=== PATIENT | female | born 1945 | race American Indian/Alaskan Native ===

== ENCOUNTER 2016-11-11 15:27 | Emergency (ER) | payer OTHER, BC ==
[2016-11-11 15:34] VITALS: PULSE 115; TEMP 99.1
[2016-11-11 15:35] VITALS: BP 119/60
[2016-11-11] MEDS ORDERED: IPRATROPIUM/ALBUTEROL 3 ML DEYVIAL ONE (15:43)
[2016-11-11] MEDS ORDERED: IPRATROPIUM/ALBUTEROL 3 ML DEYVIAL IH ONE (15:46)
--- NOTE | 2016-11-11 16:04 | UCPHY ---
[id number] Time Seen by Provider: 11/11/16 15:42 HPI/ROS: 71-year-old female with history of pulmonary hypertension on home oxygen however has not been using home oxygen for several months. She presents today complaining of shortness of breath cough fevers chills, body aches since last Friday. She has a hx of using home oxygen however has not used it for at least the last 6 months. Patient has a history of pulmonary hypertension. Review of systems As per HPI General positive fever positive chills positive weakness HEENT no eye pain no eye discharge. No eye redness, no sore throat Respiratory positive cough positive shortness of breath Cardiac no chest pain, positive leg edema GI no abdominal pain, no diarrhea, no constipation, no nausea, no vomiting no flank pain, no hematuria, no dysuria Musculoskeletal no myalgias, no joint pain Heme no easy bruising, no easy bleeding Endo no polyuria, no polydipsia Skin no rashes, no pruritus Neuro no syncope, no dizziness, no headaches Psych is no suicidal ideation, no homicidal ideation Source: Patient, Family Exam Limitations: Clinical condition - Personal History Current Tetanus/Diphtheria Vaccine: Unsure Tetanus Vaccine Date: unsure - Medical/Surgical History Hx Asthma: Yes Hx Chronic Respiratory Disease: Yes Hx Diabetes: No Hx Cardiac Disease: Yes Hx Renal Disease: No Hx Cirrhosis: No Hx Alcoholism: No Hx HIV/AIDS: No Hx Splenectomy or Spleen Trauma: No Other PMH: pulmonary htn, on coumadin for pe 2012,ra,htn - Family History Significant Family History: No pertinent family hx - Social History Smoking Status: Never smoked Alcohol Use: None Drug Use: None - Physical Exam Exam: 71-year-old female , tachypneic, tachycardic, in moderate respiratory distress Atraumatic normocephalic Extraocular muscles intact, anicteric Neck-no JVD supple Lungs diffuse wheezing bilaterally Heart holosystolic murmur, rapid rate regular rhythm Abdomen obese NABS soft Extremities 1+ pitting edema bilaterally Neuro No focal motor deficits Speech coherent Constitutional: Initial Vital Signs Temperature (C) 37.3 C 11/11/16 15:32 Heart Rate 115 H 11/11/16 15:32 Respiratory Rate 22 H 11/11/16 15:32 Blood Pressure 119/60 11/11/16 15:32 O2 Sat (%) 75 L 11/11/16 15:32 O2 Delivery Mode Non-Rebreather Mask O2 (L/minute) 15 Allergies/Adverse Reactions: ciprofloxacin [From Cipro] Allergy (Intermediate, Verified 11/11/16 15:31) CHILLS, FEVER cephalexin monohydrate [From Keflex] Allergy (Verified 11/11/16 15:31) CHILLS ciprofloxacin HCl [From Cipro] Allergy (Verified 11/11/16 15:31) ITCH Home Medications: Medication Instructions Recorded Albuterol [Proventil Inhaler (RX)] 2 puffs IH PRN PRN 01/06/13 Sildenafil Citrate [Revatio] 40 mg PO BID 01/06/13 Tramadol HCl 100 mg PO BID 01/06/13 Zolpidem Tartrate [Ambien 10 mg] 5 - 10 mg PO HS 01/06/13 CeleBREX 01/08/14 Coumadin 1MG (RX) 01/08/14 Lasix 01/08/14 Medical Decision Making - Diagnostics Imaging: Chest x-ray bilateral lower lobe pneumonia increased vasculature cardiomegaly ED Course/Re-evaluation: Patient seen and evaluated for cough fevers chills shortness of breath and low pulse ox On arrival her pulse ox was 75% on room air She was wheezing and immediately started on a DuoNeb She required a non-rebreather at 15 L in addition a 4 L nasal cannula to keep her oxygen above 90% IV was established labs, blood cultures, and influenza swab were sent EKG done-normal sinus rhythm inverted Ts in leads V1 and V2, no ST elevation Influenza negative BNP 3240, elevated Troponin 0.073, elevated Patient given additional albuterol neb Furosemide 40 mg IV push for fluid overload Also given baby aspirin 324 mg, Solu-Medrol 125 mg Patient is allergic to both ciprofloxacin and cephalosporins Azithromycin 500 mg IV piggyback given for initial coverage of community- acquired pneumonia Impression Dyspnea likely multifactorial Bilateral lower lobe pneumonia, congestive heart failure, pulmonary hypertension Plan Transfer to hospital with ICU of capabilities for probable BiPAP and further workup of this dyspnea Discussed with Dr. Reed at [facility] to be admitted to ICU, awaiting bed assignment. - Data Points Laboratory Results: Laboratory Results 11/11/16 16:15 11/11/16 15:57 11/11/16 11/11/16 11/11/16 16:32 16:15 15:57 WBC 8.52 10^3/uL (3.80-9.50) RBC 4.61 10^6/uL (4.18-5.33) Hgb 13.9 g/dL (12.6-16.3) Hct 43.0 % (38.0-47.0) MCV 93.3 fL (81.5-99.8) MCH 30.2 pg (27.9-34.1) MCHC 32.3 L g/dL (32.4-36.7) RDW 17.8 H % (11.5-15.2) Plt Count 184 10^3/uL (150-400) MPV 11.3 fL (8.7-11.7) Neut % (Auto) 63.3 % (39.3-74.2) Lymph % (Auto) 22.8 % (15.0-45.0) [place] % (Auto) 11.6 % (4.5-13.0) Eos % (Auto) 0.0 L % (0.6-7.6) Baso % (Auto) 0.5 % (0.3-1.7) Nucleat RBC Rel Count 0.7 H % (0.0-0.2) Absolute Neuts (auto) 5.40 10^3/uL (1.70-6.50) Absolute Lymphs (auto) 1.94 10^3/uL (1.00-3.00) Absolute Monos (auto) 0.99 H 10^3/uL (0.30-0.80) Absolute Eos (auto) 0.00 L 10^3/uL (0.03-0.40) Absolute Basos (auto) 0.04 10^3/uL (0.02-0.10) Absolute Nucleated RBC 0.06 H 10^3/uL (0-0.01) Immature Gran % 1.8 H % (0.0-1.1) Immature Gran # 0.15 H 10^3/uL (0.00-0.10) PT 25.5 H SEC (12.0-15.0) INR 2.38 H (0.83-1.16) APTT 46.6 H SEC (23.0-38.0) VBG Lactic Acid 1.4 mmol/L (0.7-2.1) Sodium 140 mEq/L (134-144) Potassium 4.4 mEq/L (3.5-5.2) Chloride 101 mEq/L (97-110) Carbon Dioxide 26 mEq/l (22-31) Anion Gap 13 mEq/L (8-16) BUN 19 mg/dL (7-23) Creatinine 1.1 H mg/dL (0.6-1.0) Estimated GFR 49 Glucose 107 H mg/dL (70-100) Calcium 8.4 L mg/dL (8.5-10.4) Total Bilirubin 1.9 H mg/dL (0.1-1.4) AST 61 H IU/L (14-46) ALT 43 IU/L (9-52) Alkaline Phosphatase 137 H IU/L (38-126) Troponin I 0.073 H ng/mL (0-0.034) NT-Pro-B Natriuret Pep 3240 H pg/mL (0-125) Total Protein 6.0 L g/dL (6.3-8.2) Albumin 2.9 L g/dL (3.5-5.0) Influenza Typ A,B (DFA) NEGATIVE FOR FLU (NEGATIVE) Medications Given: Discontinued Medications Albuterol (Proventil Neb) 3 ml IH EDNOW ONE Stop: 11/11/16 17:19 Last Admin: 11/11/16 17:51 Dose: 3 ml Albuterol/Ipratropium (Duoneb) 3 ml IH EDNOW ONE Stop: 11/11/16 15:47 Last Admin: 11/11/16 15:47 Dose: 3 ml Aspirin (Aspirin) 324 mg PO EDNOW ONE Stop: 11/11/16 16:53 Last Admin: 11/11/16 17:40 Dose: 324 mg Furosemide (Lasix Injection) 40 mg IVP EDNOW ONE Stop: 11/11/16 16:52 Last Admin: 11/11/16 17:40 Dose: 40 mg Azithromycin 500 mg/ Sodium (Chloride) 255 mls @ 255 mls/hr IV EDNOW ONE PRN Reason: Protocol Stop: 11/11/16 18:40 Last Admin: 11/11/16 18:00 Dose: 255 mls Methylprednisolone Sodium Succinate (Solu-Medrol) 125 mg IVP EDNOW ONE Stop: 11/11/16 17:43 Last Admin: 11/11/16 18:08 Dose: 125 mg Departure - Departure Disposition: Acute Care Hospital Not [facility] Clinical Impression: Dyspnea Condition: Serious Referrals: Shefali Burns [Primary Care Provider] - As per Instructions - PQRS PQRS Measurement: Not applicable
[2016-11-11 16:23] LABS: % IMMATURE GRANULYOCYTES 1.8 % (0.0-1.1); ABSOLUTE IMMATURE GRANULOCYTES 0.15 10^3/uL (0.00-0.10); ABSOLUTE NRBC COUNT 0.06 10^3/uL (0-0.01); ADD DIFF? NO; ADD MORPH? NO; ADD SCAN? NO; ATYPICAL LYMPHOCYTE FLAG 0 (0-99); FRAGMENT RBC FLAG 40 (0-99); HEMOGLOBIN 13.9 g/dL (12.6-16.3); LEFT SHIFT FLG 50 (0-99); LIPEMIA HEMOLYSIS FLAG 80 (0-99); MEAN CELL HEMOGLOBIN 30.2 pg (27.9-34.1); MEAN CELL HEMOGLOBIN CONCENTR. 32.3 g/dL (32.4-36.7); MEAN CELL VOLUME 93.3 fL (81.5-99.8); MEAN PLATELET VOLUME 11.3 fL (8.7-11.7); NRBC-AUTO% 0.7 % (0.0-0.2); PLATELET CLUMPS FLAG 10 (0-99); PLATELET COUNT 184 10^3/uL (150-400); RED BLOOD CELL COUNT 4.61 10^6/uL (4.18-5.33); RED CELL DISTRIBUTION WIDTH 17.8 % (11.5-15.2)
--- NOTE | 2016-11-11 16:33 | CPEKG ---
Heart Rate: 88 RR Interval: 682 P-R Interval: 192 QRSD Interval: 90 QT Interval: 356 QTC Interval: 431 P [place]: -24 QRS [place]: 74 T Wave [place]: -2 EKG Severity - BORDERLINE ECG - EKG Impression: SINUS RHYTHM EKG Impression: BORDERLINE T ABNORMALITIES, ANTERIOR LEADS EKG Impression: UNCHANGED IN COMPARISION TO PRIOR Electronically Signed By: Rian Dickson 13-Nov-2016 08:37:59
[2016-11-11 16:38] LABS: ALANINE AMINOTRANSFERASE 43 IU/L (9-52); ALBUMIN 2.9 g/dL (3.5-5.0); ALKALINE PHOSPHATASE 137 IU/L (38-126); ANION GAP 13 mEq/L (8-16); ASPARTATE AMINOTRANSFERASE 61 IU/L (14-46); BILIRUBIN,TOTAL 1.9 mg/dL (0.1-1.4); CALCIUM 8.4 mg/dL (8.5-10.4); CARBON DIOXIDE 26 mEq/l (22-31); CHLORIDE 101 mEq/L (97-110); CREATININE 1.1 mg/dL (0.6-1.0); GLOMERULAR FILTRATION RATE 49; GLUCOSE 107 mg/dL (70-100); POTASSIUM 4.4 mEq/L (3.5-5.2); SODIUM 140 mEq/L (134-144)
[2016-11-11 16:44] LABS: TROPONIN I 0.073 ng/mL (0-0.034)
[2016-11-11] MEDS ORDERED: FUROSEMIDE 40 MG/4 ML VIAL IVP ONE (16:51)
[2016-11-11] MEDS ORDERED: ASPIRIN 81 MG CHEWABLE TAB PO ONE (16:52)
[2016-11-11 16:57] LABS: INR 2.38 (0.83-1.16); PROTIME(PATIENT) 25.5 SEC (12.0-15.0)
[2016-11-11 16:58] LABS: APTT 46.6 SEC (23.0-38.0)
--- NOTE | 2016-11-11 17:03 | DX ---
Portable AP chest. 11/11/2016 at 1647 History: cough Comparison study: None available Findings: Airspace consolidation is present in the mid and lower lungs bilaterally, pneumonia versus pulmonary edema. Cardiac silhouette is moderately prominent. No pleural effusion. Impression: Bilateral lower lobe pulmonary consolidation, pneumonia versus pulmonary edema.
[2016-11-11] MEDS ORDERED: VANCOMYCIN 1.5 GM in NS 250 ML IV ONE (17:17)
[2016-11-11] MEDS ORDERED: ALBUTEROL 3 ML DEYVIAL IH ONE (17:18)
[2016-11-11] MEDS ORDERED: AZITHROMYCIN IV 500 MG in NS 250 ML IV ONE (17:41)
[2016-11-11] MEDS ORDERED: methylPREDNISolone SOD SUCC 125 MG/2 ML VIAL IVP ONE (17:42)
[2016-11-11 20:14] VITALS: RESP 24; O2SAT 88
== END 2016-11-11 20:14 | disposition short-term general hospital (02) ==
LOC: CED 15:27 → CEDHOLD 17:34 → UNDOADMIN 17:34 → CED 20:14
DX: R06.00 Dyspnea, unspecified (principal); I27.2 Other secondary pulmonary hypertension; Z99.81 Dependence on supplemental oxygen; Z79.01 Long term (current) use of anticoagulants
CPT/HCPCS: 71010-PO; 80053-PO; 83605-PO; 83880-PO; 84484-PO; 85025-PO; 85610-PO; 85730-PO; 87400-PO; 93010-PO; 99215-PO; J0456

== ENCOUNTER 2018-07-30 19:16 | Inpatient (IN) | payer OTHER, BC ==
[2018-07-30] MEDS ORDERED: NS 1,000 ML IV ONE (19:51)
[2018-07-30] MEDS ORDERED: HYDROmorphONE/DILAUDID 2 MG/ML INJ IVP ONE (20:05)
[2018-07-30] MEDS ORDERED: ONDANSETRON 4 MG/2 ML VIAL IVP ONE (20:05)
--- NOTE | 2018-07-30 20:16 | EDPHY ---
H & P Stated Complaint: c/o URQ abd pain since 10 am - now pain all over - denies N/V/ D BM today Time Seen by Provider: 07/30/18 19:49 HPI/ROS: This patient complains of upper abdominal pain and distension onset around 10: 00 a.m. Today with steadily increasing pain described as colicky in nature and severe intensity, similar to prior episodes of bowel obstruction. She describes associated nausea and anorexia. Last food intake was some crackers this morning. She also describes low-grade subjective fevers. She did have 1 normal appearing bowel movement this afternoon. The pain worsens with certain movement and positions-worse with bending for than lying supine. Her drove her in by private vehicle for further evaluation of the symptoms. ROS: Constitutional: Subjective fevers. No high fevers or chills HEENT: No URI symptoms but she does have coryza she attributes to seasonal allergies Pulmonary: No complaints Cardiovascular: No lightheadedness or chest pain GI: Nausea but no vomiting, normal bowel movements, distension with pain radiates to the back. : No hematuria. No flank pain. No dysuria. Integumentary: No complaints Endocrine: No complaints Hematologic: She denies any pallor 10 point review of symptoms is performed and otherwise negative with exception of pertinent positives and negatives listed in HPI and ROS Source: Patient Exam Limitations: No limitations - Personal History Current Tetanus Diphtheria and Acellular Pertussis (TDAP): Yes Tetanus Vaccine Date: unsure - Medical/Surgical History PMH: Past surgical history: Laparotomy for peritonitis at age 15 Cholecystectomy Ectopic Bowel obstruction requiring colon resection [address] OMAR Vanegas Hx Asthma: Yes Hx Chronic Respiratory Disease: Yes Hx Diabetes: No Hx Cardiac Disease: Yes Hx Renal Disease: No Hx Cirrhosis: No Hx Alcoholism: No Hx HIV/AIDS: No Hx Splenectomy or Spleen Trauma: No Other PMH: pulmonary htn- Dr joel Ayon, on coumadin for pe 2012,ra,htn/Colon resection/ opsuinet- sindenafil - Family History Significant Family History: No pertinent family hx - Social History Smoking Status: Never smoked Alcohol Use: Rarely Drug Use: None - Physical Exam Exam: General Appearance: Alert, no distress. Eyes: Pupils equal and round no pallor or injection. ENT, Mouth: Mucous membranes moist. Respiratory: There are no retractions, lungs are clear to auscultation. Cardiovascular: Irregularly irregular with no murmur gallop or rub. She maintains 2+ symmetric lower extremity pulses bilaterally Gastrointestinal: Hypoactive, soft, moderate distension-diffuse tenderness with no guarding or rebound with slightly more tenderness to the upper belly than lower belly. Neurological: GCS 15 Back: No CVA tenderness Skin: Warm and dry, no rashes. Musculoskeletal: Neck is supple nontender. Extremities are symmetrical, full range of motion. Psychiatric: Mood and affect are normal DIFFERENTIAL DIAGNOSIS: After history and physical exam differential diagnosis was considered for bowel obstruction, pancreatitis, perforated viscus, AAA, ischemic bowel Constitutional: Initial Vital Signs Temperature (C) 36.6 C 07/30/18 19:24 Heart Rate 86 07/30/18 19:24 Respiratory Rate 20 07/30/18 19:24 Blood Pressure 147/90 H 07/30/18 19:24 O2 Sat (%) 97 07/30/18 19:24 O2 Delivery Mode Room Air Allergies/Adverse Reactions: ciprofloxacin [From Cipro] Allergy (Intermediate, Verified 11/11/16 15:31) CHILLS, FEVER cephalexin monohydrate [From Keflex] Allergy (Verified 11/11/16 15:31) CHILLS ciprofloxacin HCl [From Cipro] Allergy (Verified 11/11/16 15:31) ITCH Home Medications: Medication Instructions Recorded Sildenafil Citrate [Revatio] 40 mg PO BID 01/06/13 Zolpidem Tartrate [Ambien 10 mg] 5 - 10 mg PO HS 01/06/13 CeleBREX 01/08/14 Coumadin 1MG (RX) 01/08/14 Lasix 01/08/14 Macitentan 07/30/18 Sildenafil Citrate 07/30/18 Medical Decision Making - Diagnostics EKG Interpretation: 12 lead EKG performed at 8:58 pm indication irregular on monitor Reveals sinus rhythm at 91 intervals: P R of 226 other intervals are normal except for QT of 525 overall assessment: sinus rhythm with ventricular trigeminy Imaging Results: Imaging Impressions Abdomen CT 07/30/18 20:06 Impression: 1. Small bowel dilatation, with an apparent transition point in the anterior right pelvis near an area of previous surgery, suspicious for small bowel obstruction. 2. Indeterminate soft tissue density in the subcutaneous tissues in the area of transition, most likely related to incomplete resolution of a previously suspected hematoma. 3. Small infrarenal abdominal aortic aneurysm, without dissection. 4. Small volume of ascites. 5. Extensive sigmoid diverticulosis, without evidence of diverticulitis. 6. Nonspecific mildly prominent iliac lymph nodes, possibly reactive. 7. Additional findings, as above. Findings discussed with Toribio Lorenzo M.D., on July 30, 2018 at 2103. E:amm CT abdomen pelvis with IV contrast: Loops of dilated small bowel consistent with small-bowel obstruction per Dr. Colunga. She also has mild abdominal aortic aneurysm 3.3 cm but no evidence of dissection or other significant abnormalities. Imaging: Discussed imaging studies w/ bilingual call center representative Radiologist ED Course/Re-evaluation: IV, normal saline bolus Patient vomited shortly after arrival then treated with Zofran 4 mg IV Patient initially had a 22 gauge IV in the hand. Asked for a larger IV for contrast CT study Discussion: Given findings most consistent with bowel obstruction, will proceed with CT abdomen on this patient. Counseled regarding this. Discussed the patient's small bowel obstruction with her after I spoke with Dr. Colunga, radiologist regarding her CT. I also personally reviewed these images. The patient feels comfortable after the Zofran, emesis x1, Dilaudid. She is in agreement with plan for admission. I spoke with Dr. Megan Soler, hospitalist on-call for [facility] also accepts the patient for admission. I also spoke with Dr. Lashaun Patel, general surgeon on-call for Dr. Omar Vanegas (pt's surgeon). Surg. will see the patient tomorrow in consult. Lab Studies: CBC is normal, metabolic panel is normal POC INR of 2 - Data Points Laboratory Results: Laboratory Results 07/30/18 19:45 07/30/18 07/30/18 07/30/18 19:59 19:45 19:45 WBC 8.69 10^3/uL 10^3/uL (3.80-9.50) RBC 4.51 10^6/uL 10^6/uL (4.18-5.33) Hgb 13.7 g/dL g/dL (12.6-16.3) Hct 43.0 % % (38.0-47.0) MCV 95.3 fL fL (81.5-99.8) MCH 30.4 pg pg (27.9-34.1) MCHC 31.9 g/dL L g/dL (32.4-36.7) RDW 19.0 % H % (11.5-15.2) Plt Count 231 10^3/uL 10^3/uL (150-400) MPV 10.5 fL fL (8.7-11.7) Neut % (Auto) 83.6 % H % (39.3-74.2) Lymph % (Auto) 9.7 % L % (15.0-45.0) [place] % (Auto) 5.1 % % (4.5-13.0) Eos % (Auto) 0.7 % % (0.6-7.6) Baso % (Auto) 0.2 % L % (0.3-1.7) Nucleat RBC Rel Count 0.2 % % (0.0-0.2) Absolute Neuts (auto) 7.27 10^3/uL H 10^3/uL (1.70-6.50) Absolute Lymphs (auto) 0.84 10^3/uL L 10^3/uL (1.00-3.00) Absolute Monos (auto) 0.44 10^3/uL 10^3/uL (0.30-0.80) Absolute Eos (auto) 0.06 10^3/uL 10^3/uL (0.03-0.40) Absolute Basos (auto) 0.02 10^3/uL 10^3/uL (0.02-0.10) Absolute Nucleated RBC 0.02 10^3/uL H 10^3/uL (0-0.01) Immature Gran % 0.7 % % (0.0-1.1) Immature Gran # 0.06 10^3/uL 10^3/uL (0.00-0.10) Platelet Estimate ADEQUATE (ADEQ) Polychromasia 1+ H Microcytic Cells 1+ H Oval Macrocytes 1+ H Elliptocytes 1+ H POC Sodium 144 mEq/L mEq/L (135-145) POC Potassium 4.4 mEq/L mEq/L (3.3-5.0) POC Chloride 105.0 mEq/L mEq/L (97-110) POC Total CO2 26 mEq/L mEq/L (22-31) POC BUN 14 mg/dL mg/dL (7-23) POC Creatinine 1.1 mg/dL H mg/dL (0.6-1.0) POC Glucose 117 mg/dL H mg/dL (70-100) POC Calcium 9.9 mg/dL mg/dL (8.5-10.4) POC Total Bilirubin 0.8 mg/dL mg/dL (0.1-1.4) POC AST 28 IU/L IU/L (14-46) POC ALT 12 IU/L IU/L (9-52) POC Alk Phosphatase 91 IU/L IU/L (38-126) POC Total Protein 7.3 g/dL g/dL (6.3-8.2) POC Albumin 4.0 g/dL g/dL (3.5-5.0) Lipase 73 IU/L IU/L (23-300) Medications Given: Discontinued Medications Hydromorphone HCl (Dilaudid) 1 mg IVP EDNOW ONE Stop: 07/30/18 20:06 Last Admin: 07/30/18 21:08 Dose: 1 mg Hydromorphone HCl (Dilaudid) 0.5 mg IVP EDNOW ONE Stop: 07/30/18 22:14 Last Admin: 07/30/18 22:14 Dose: 0.5 mg Sodium Chloride (Ns) 1,000 mls @ 0 mls/hr IV EDNOW ONE; Wide Open PRN Reason: Protocol Stop: 07/30/18 19:52 Last Admin: 07/30/18 19:56 Dose: 1,000 mls Ondansetron HCl (Zofran) 4 mg IVP EDNOW ONE Stop: 07/30/18 20:06 Last Admin: 07/30/18 21:09 Dose: 4 mg Point of Care Test Results: Chemistry 07/30/18 19:59 POC Sodium 144 mEq/L mEq/L (135-145) POC Potassium 4.4 mEq/L mEq/L (3.3-5.0) POC Chloride 105.0 mEq/L mEq/L (97-110) POC Total CO2 26 mEq/L mEq/L (22-31) POC BUN 14 mg/dL mg/dL (7-23) POC Creatinine 1.1 mg/dL H mg/dL (0.6-1.0) POC Glucose 117 mg/dL H mg/dL (70-100) POC Calcium 9.9 mg/dL mg/dL (8.5-10.4) POC Total Bilirubin 0.8 mg/dL mg/dL (0.1-1.4) POC AST 28 IU/L IU/L (14-46) POC ALT 12 IU/L IU/L (9-52) POC Alk Phosphatase 91 IU/L IU/L (38-126) POC Total Protein 7.3 g/dL g/dL (6.3-8.2) POC Albumin 4.0 g/dL g/dL (3.5-5.0) Comprehensive Metabolic Panel CMP Collection Date 07/30/18 CMP Collection Time 19:45 Departure - Departure Disposition: [facility] Acute Clinical Impression: Small bowel obstruction Condition: Fair
[2018-07-30] MEDS ORDERED: IOPAMIDOL (ISOVUE-300) 100 ML BTL ONE (20:19)
[2018-07-30 20:50] LABS: PLATELET COUNT 231 10^3/uL (150-400)
[2018-07-30] MEDS ORDERED: ONDANSETRON 4 MG/2 ML VIAL IVP PRN (21:38)
[2018-07-30] MEDS ORDERED: LORazepam 2 MG/ML INJ IVP PRN (21:38)
[2018-07-30] MEDS ORDERED: HYDROmorphONE/DILAUDID 1 MG/ML INJ ONE (22:09)
[2018-07-30] MEDS ORDERED: HYDROmorphONE/DILAUDID 1 MG/ML INJ IVP ONE (22:13)
[2018-07-31] MEDS: LORazepam 2 MG/ML INJ IVP PRN ×2 (00:24→20:41)
[2018-07-31] MEDS: NS 1,000 ML IV SCH ×3 (00:24→16:35)
--- NOTE | 2018-07-31 03:22 | PDGENHP ---
History and Physical - Chief Complaint Abdominal pain and distension - History of Present Illness Source-patient provides history appears reliable. EMR was reviewed and case discussed with ED provider. HPI-this is a very pleasant 72-year-old female with past medical history significant for asthma, pulmonary hypertension status post PE on Coumadin, RA, HTN, trigeminal neuralgia in significant history of SBO related to adhesions who presents emergency department today at [facility] with complaints of 1 day history of increasing abdominal pain and significant distention starting approximately 10:00 a.m.. Patient had reported increasing cramping diffuse abdominal pain that was severe in nature. It worsened with any kind of movement. It did not improve with rest or bowel movement. Patient reports significant nausea and felt like she had to vomit and had decreased appetite all day. When she arrived to the ED patient did subsequently developed on nausea with bilious emesis but no hematemesis. Patient has a history of recurrent SBO does a multiple ex laps and last this surgery sometime as early as 2009 patient underwent a partial bowel resection with Dr. Vanegas. She subsequently in 2012 underwent a ventral hernia repair with mesh. She reports that she had been doing well up until this morning. Patient reports some subjective fevers but no chills or sweats. History Information - Allergies/Home Medication List Allergies/Adverse Reactions: ciprofloxacin [From Cipro] Allergy (Intermediate, Verified 11/11/16 15:31) CHILLS, FEVER cephalexin monohydrate [From Keflex] Allergy (Verified 11/11/16 15:31) CHILLS ciprofloxacin HCl [From Cipro] Allergy (Verified 11/11/16 15:31) ITCH Home Medications: Sildenafil Citrate [Revatio] 40 mg PO BID 01/06/13 [Last Taken 01/05/13] Zolpidem Tartrate [Ambien 10 mg] 5 - 10 mg PO HS 01/06/13 [Last Taken 01/05/13] CeleBREX 01/08/14 [Last Taken Unknown] Coumadin 1MG (RX) 01/08/14 [Last Taken Unknown] Lasix 01/08/14 [Last Taken Unknown] Macitentan 07/30/18 [Last Taken Unknown] Sildenafil Citrate 07/30/18 [Last Taken Unknown] I have personally reviewed and updated: family history, medical history, social history, surgical history - Past Medical History Additional medical history: PE on Coumadin. Pulmonary hypertension. Asthma. RA. HTN. Trigeminal neuralgia. "hole in heart" - Surgical History Additional surgical history: Patient with a history of exploratory laparotomy for what was thought to be volvulus at age 15 with normal findings, ectopic , cholecystectomy open, ex lap for lysis of adhesions 2009 with partial bowel resection. Two thousand thirteen ventral hernia repair. - Family History Additional family history: Patient has 9 siblings altogether. She has 3 living siblings still that live in various states. Father age 59 due to massive CA. Mother age 86 secondary to CHF. Eldest brother related to complications of endocarditis. Another brother with history of cardiac disease. Eldest sister with history of cardiac disease and lung cancer. Another sister with history of fatty liver disease and subsequently developed liver cancer. A brother with history of lymphoma - Social History Smoking Status: Never smoked Alcohol Use: None Drug Use: None Additional social history: Patient is to has been of 47 years. She has 2 children and several grandchildren. Cor status-full. Review of Systems Review of Systems: ROS: 10pt was reviewed & negative except for what was stated in HPI & below Constitutional: Reports: fever (Subjective fevers) Physical Exam Physical Exam: Selected Entries 07/30/18 07/30/18 19:24 23:23 Blood Pressure Automatic Method Heart Rate 86 103 H Respiratory 20 18 Rate O2 Sat (%) 97 94 Temperature (C) 36.6 C 37.1 C Blood Pressure 147/90 H 135/69 H Mean Arterial 109 H 91 Pressure (MAP) O2 (L/minute) 5 Activity During At Rest Vital Signs O2 Delivery Room Air Room Air Mode Blood Pressure Left Source Upper Arm Temperature Oral Oral Source Heart Rate Heart Rate/ Source Monitor Constitutional: no apparent distress, appears nourished, obese, other (NAD. Patient is lying back in bed awake and interactive. She does appear little uncomfortable with movement and cradle is her lower abdomen slightly.) Eyes: PERRL (Decreased reactivity light bilaterally and symmetric.), anicteric sclera, EOMI, No scleral injection Ears, Nose, Mouth, Throat: moist mucous membranes, no oral mucosal ulcers, other (No nasal discharge.), No poor dentition (Dentures in place.) Cardiovascular: regular rate and rhythym, pulses symmetric bilaterally, other ( Holosystolic murmur greatest at the top left sternal border) Peripheral Pulses: 1+: dorsalis-pedis (R), dorsalis-pedis (L) Respiratory: no respiratory distress, no rales or rhonchi, clear to auscultation , No expiratory wheeze, No rhonchi Gastrointestinal: normoactive bowel sounds, no palpable masses, tenderness ( Mild tenderness to palpation diffusely), distension, other (Obese abdomen. Hypoactive bowel sounds.), No guarding Genitourinary: no bladder tenderness, No nair in urethra Skin: warm, normal color, no rashes or abrasions, No rash Musculoskeletal: full muscle strength, other (Stress patient's strength grossly normal. She is able to sit up independently. Strength upper lower extremities appear to be above 5/5.), No generalized weakness Neurologic: AAOx3, sensation intact bilaterally, other (Grossly nonfocal exam.) , No facial droop Psychiatric: interacting appropriately, not encephalopathic, anxious, other ( Pleasant cooperative adult female resting quietly. Patient thought process content and questions are all appropriate.), No poor insight, No poor judgement , No poor memory Lab Data & Imaging Review 07/30/18 19:45 WBC 8.69 10^3/uL (3.80-9.50) 07/30/18 19:45 RBC 4.51 10^6/uL (4.18-5.33) 07/30/18 19:45 Hgb 13.7 g/dL (12.6-16.3) 07/30/18 19:45 Hct 43.0 % (38.0-47.0) 07/30/18 19:45 MCV 95.3 fL (81.5-99.8) 07/30/18 19:45 MCH 30.4 pg (27.9-34.1) 07/30/18 19:45 MCHC 31.9 g/dL (32.4-36.7) L 07/30/18 19:45 RDW 19.0 % (11.5-15.2) H 07/30/18 19:45 Plt Count 231 10^3/uL (150-400) 07/30/18 19:45 MPV 10.5 fL (8.7-11.7) 07/30/18 19:45 Neut % (Auto) 83.6 % (39.3-74.2) H 07/30/18 19:45 Lymph % (Auto) 9.7 % (15.0-45.0) L 07/30/18 19:45 [place] % (Auto) 5.1 % (4.5-13.0) 07/30/18 19:45 Eos % (Auto) 0.7 % (0.6-7.6) 07/30/18 19:45 Baso % (Auto) 0.2 % (0.3-1.7) L 07/30/18 19:45 Nucleat RBC Rel Count 0.2 % (0.0-0.2) 07/30/18 19:45 Absolute Neuts (auto) 7.27 10^3/uL (1.70-6.50) H 07/30/18 19:45 Absolute Lymphs (auto) 0.84 10^3/uL (1.00-3.00) L 07/30/18 19:45 Absolute Monos (auto) 0.44 10^3/uL (0.30-0.80) 07/30/18 19:45 Absolute Eos (auto) 0.06 10^3/uL (0.03-0.40) 07/30/18 19:45 Absolute Basos (auto) 0.02 10^3/uL (0.02-0.10) 07/30/18 19:45 Absolute Nucleated RBC 0.02 10^3/uL (0-0.01) H 07/30/18 19:45 Immature Gran % 0.7 % (0.0-1.1) 07/30/18 19:45 Immature Gran # 0.06 10^3/uL (0.00-0.10) 07/30/18 19:45 Platelet Estimate ADEQUATE (ADEQ) 07/30/18 19:45 Polychromasia 1+ H 07/30/18 19:45 Microcytic Cells 1+ H 07/30/18 19:45 Oval Macrocytes 1+ H 07/30/18 19:45 Elliptocytes 1+ H 07/30/18 19:45 POC Sodium 144 mEq/L (135-145) 07/30/18 19:59 POC Potassium 4.4 mEq/L (3.3-5.0) 07/30/18 19:59 POC Chloride 105.0 mEq/L (97-110) 07/30/18 19:59 POC Total CO2 26 mEq/L (22-31) 07/30/18 19:59 POC BUN 14 mg/dL (7-23) 07/30/18 19:59 POC Creatinine 1.1 mg/dL (0.6-1.0) H 07/30/18 19:59 POC Glucose 117 mg/dL (70-100) H 07/30/18 19:59 POC Calcium 9.9 mg/dL (8.5-10.4) 07/30/18 19:59 POC Total Bilirubin 0.8 mg/dL (0.1-1.4) 07/30/18 19:59 POC AST 28 IU/L (14-46) 07/30/18 19:59 POC ALT 12 IU/L (9-52) 07/30/18 19:59 POC Alk Phosphatase 91 IU/L (38-126) 07/30/18 19:59 Troponin I < 0.012 ng/mL (0.000-0.034) 07/30/18 23:21 POC Total Protein 7.3 g/dL (6.3-8.2) 07/30/18 19:59 POC Albumin 4.0 g/dL (3.5-5.0) 07/30/18 19:59 Lipase 73 IU/L (23-300) 07/30/18 19:45 Imaging Review: CT Abdomen and Pelvis, With Contrast History: Bowel distention, pain, nausea - ? Bowel obstruction. History of ventral hernia repair in 2012. Technique: Axial contrast-enhanced images were obtained through the abdomen and pelvis following the uneventful administration of 98 mL Isovue-300 intravenous contrast. Creatinine is 1.1. Dose reduction techniques were utilized. Comparison: CT angiogram chest November 05, 2012, limited abdominal wall ultrasound March 12, 2013. Findings: Abdomen: There is mild basilar atelectasis. Cardiomegaly is present. Mitral annular calcifications are noted. Mild intra- and extrahepatic biliary dilatation may be related to prior cholecystectomy. The liver is otherwise unremarkable. The spleen, pancreas, and adrenals are normal. Circumscribed hypodensities in the kidneys are akh-zreia-wi-characterize, statistically likely to represent cysts. Cortical scarring/thinning is noted bilaterally. A 2-mm nonobstructing right renal stone is present. There is dilatation of small bowel in the left abdomen, measuring up to 3.8 cm , most prominent in the region of a small bowel anastomosis in the left lower quadrant, with small bowel dilatation proximal and distal to the anastomosis. There is an equivocal transition point in an area of fecalization of small bowel in the anterior abdomen/pelvis just to the right of midline (coronal series #5, image #52). The distal small bowel is relatively decompressed distal to this point. Areas of apparent distal small bowel wall thickening could be related to inflammation or underdistention. In the area of transition, there is an amorphous soft tissue density that measures 3.3 x 2.7 cm maximal transverse diameter, in the deep subcutaneous tissues near the anterior peritoneal lining (series #4, image #187, e.g.), with apparent mesh in the region, possibly related to sequela of prior hernia repair and hematoma. The colon is relatively decompressed. Extensive sigmoid diverticulosis is present, without evidence of diverticulitis. There is no free air or pneumatosis. There is trace ascites. There is a small infrarenal abdominal aortic aneurysm, measuring 3.3 cm in maximal AP diameter, tapering to normal caliber proximal to the aortic bifurcation. Moderate aortic atherosclerosis is present. The IVC, portal, splenic, and superior mesenteric veins are patent. No pathologically enlarged lymph nodes are identified. Moderate to severe degenerative change is present in the lower lumbar spine, with moderate to severe spinal canal narrowing, at L3-L4 and L4-L5. Pelvis: The bladder is decompressed. A small amount of ascites is present. The uterus is surgically absent. Nonspecific mildly prominent iliac lymph nodes may be reactive. Partial fusion of the sacroiliac joints is noted. Impression: 1. Small bowel dilatation, with an apparent transition point in the anterior right pelvis near an area of previous surgery, suspicious for small bowel obstruction. 2. Indeterminate soft tissue density in the subcutaneous tissues in the area of transition, most likely related to incomplete resolution of a previously suspected hematoma. 3. Small infrarenal abdominal aortic aneurysm, without dissection. 4. Small volume of ascites. 5. Extensive sigmoid diverticulosis, without evidence of diverticulitis. 6. Nonspecific mildly prominent iliac lymph nodes, possibly reactive. 7. Additional findings, as above. Findings discussed with Toribio Lorenzo M.D., on July 30, 2018 at 2103. E:amm Dictated By: Issac Colunga MD Visualized and Interpreted imaging results: Yes Assessment & Plan Assessment: Pleasant 72-year-old female with a history of multiple abdominal surgeries and adhesions who presents emergency department complaints of abdominal, pain distension and nausea #Small bowel obstruction (Acute) - patient with imaging confirming diagnosis. She has a history of multiple bowel obstructions with history of laparotomies and resections. Patient will remain NPO. She currently is not having any active vomiting will hold off on NG tube. Patient reports that she does feel nauseous but has not had any emerged vomit. Abdominal pain has improved pain control with a Dilaudid. Patient reports that she develops hyperactivity in almost hallucination type events with morphine. Dr. Melendez with General surgery is consulted. Dr. Vanegas is patient's primary surgeon he will be notified of patient's admission. Appears patient's last surgery in our system was in 2012 for a ventral hernia repair with mesh. #Nausea and vomiting - p.r.n. Antiemetics. Patient's symptoms currently controlled. I did review with the patient considerations with narcotics in setting of small bowel obstruction. She is amenable to trial lying alternative medications in addition to p.r.n. Dilaudid. Ativan available p.r.n.. Chronic medical issues - Insomnia-advised patient she will be made NPO end Ambien is not available on on a IV form. She is amenable to a trial of Ativan. Will also leave Benadryl p.r.n. History PE - currently on Eliquis. pulmonary hypertension-continue sildenafil RA - supportive care. Trigeminal neuralgia - no current complaints. Benign essential hypertension - blood pressures at this time is currently acceptable. Resume patient's home medication list has been updated for restart order. FEN - IV fluids overnight for supplementation. Electrolyte monitoring and replacement if needed. Patient is NPO except for swabs and patient had a few ice chips in the ED before arrival. Very light ice chips ordered until midnight then NPO pending surgery eval in the morning. Cor status-full. PPX-SCDs and Lovenox. Cor status-full
[2018-07-31] MEDS: HYDROmorphONE/DILAUDID 1 MG/ML INJ IVP PRN ×3 (03:44→22:03)
[2018-07-31 05:18] LABS: PLATELET COUNT 214 10^3/uL (150-400)
[2018-07-31 05:24] LABS: INR 2.25 (0.83-1.16); PROTIME(PATIENT) 24.9 SEC (12.0-15.0)
[2018-07-31] MEDS: ACETAMINOPHEN 650 MG SUPP PR PRN ×2 (09:44→14:10)
--- NOTE | 2018-07-31 09:52 | PDMN ---
Medical Necessity Medical necessity: Pt meets IP criteria per MD and YAEL M-[id number]; est los > 2 MN for ongoing management and treatment of small bowel obstruction; requiring IVF, IV pain medication/anti-emetics, surgery consultation
[2018-07-31] MEDS ORDERED: ALBUTEROL 60 PUFFS/8 GM MDI IH PRN (10:32)
--- NOTE | 2018-07-31 10:45 | HOSPPROG ---
Hospitalist Progress Note Assessment/Plan: Florin 72-year-old female with a history of multiple abdominal surgeries and adhesions who presents emergency department complaints of abdominal, pain distension and nausea. Today is my first encounter w the patient, chart reviewed. *SBO -supportive care -hx of laparotomies and resections -hasn't eaten in 3 days -had a normal bowel movement yesterday -emesis yesterday but none further -spoke margaux [employer] who works w [employer], will see today *nausea and vomiting -resolved *RA -med on hold *Pulmonary htn -Sildenafil on hold for now *hx of PE -hold Coumadin for now *headache -drinks coffee regularly and hasn't been eating much -Tylenol *plan: continue NPO status until further evaluation by the surgical team Subjective: Bre is c/o headache, has no abdominal pain, no nausea or vomiting. Objective: Vital Signs Temp Pulse Resp BP Pulse Ox 37.0 C 72 16 133/62 H 91 L 07/31/18 07:43 07/31/18 07:43 07/31/18 07:43 07/31/18 07:43 07/31/18 07:43 Laboratory Results 07/31/18 04:48 07/31/18 04:48 07/30/18 07/31/18 08/01/18 05:59 05:59 05:59 Intake Total 1000 Output Total 100 Balance 900 PT 24.9 SEC (12.0-15.0) H 07/31/18 04:48 INR 2.25 (0.83-1.16) H 07/31/18 04:48 - Physical Exam Constitutional: no apparent distress, appears nourished, not in pain Eyes: PERRL Ears, Nose, Mouth, Throat: hearing normal Cardiovascular: regular rate and rhythym, systolic murmur Respiratory: no respiratory distress Gastrointestinal: normoactive bowel sounds, soft, non-tender abdomen Skin: warm Musculoskeletal: full muscle strength Neurologic: AAOx3 Psychiatric: interacting appropriately ICD10 Worksheet Patient Problems: Problems Problem Status Onset Small bowel obstruction Acute
--- NOTE | 2018-07-31 16:24 | ASMTCMCOM ---
CM Note CM Note Notes: Pt admitted to hospital w/a sbo that is being treated conservatively for now. She lives at home with her and is otherwise independent. Anticipate she will dc home w/ when medically stable. CM available for any changes. DC Plan: Independent Date Signed: 07/31/2018 04:23 PM Electronically Signed By:Arcelia Evangelista RN
--- NOTE | 2018-07-31 16:25 | SOAPPROG ---
MARK Progress Note Assessment/Plan: Assessment: 72 female with partial sbo last pm but now improved with flatus, no pain, and no emesis abd soft with bs and nontender, ? ruq hernia in old yenni scar but easily reducible chest clear cor rr heent nonicteric afebrile resolving sbo Plan:clears liquids and foloowup as outpt if she does well with diet/ consider sbft as outpt 07/31/18 16:21 Objective: Vital Signs Temp Pulse Resp BP Pulse Ox 36.9 C 83 12 131/78 H 90 L 07/31/18 16:00 07/31/18 16:00 07/31/18 16:00 07/31/18 16:00 07/31/18 16:00 Laboratory Results 07/31/18 04:48 07/31/18 04:48 07/30/18 07/31/18 08/01/18 05:59 05:59 05:59 Intake Total 1000 0 Output Total 100 600 Balance 900 -600 PT 24.9 SEC (12.0-15.0) H 07/31/18 04:48 INR 2.25 (0.83-1.16) H 07/31/18 04:48 ICD10 Worksheet Patient Problems: Problems Problem Status Onset Small bowel obstruction Acute
[2018-07-31] MEDS: ACETAMINOPHEN 325 MG TAB PO PRN (23:05)
[2018-08-01] MEDS: HYDROmorphONE/DILAUDID 1 MG/ML INJ IVP PRN (04:07)
[2018-08-01] MEDS: ACETAMINOPHEN 325 MG TAB PO PRN (09:10)
[2018-08-01 10:47] VITALS: BP 142/85
[2018-08-01] MEDS ORDERED: traMADol 50 MG TAB PO SCH (11:15)
[2018-08-01] MEDS ORDERED: SILDENAFIL CITRATE 20 MG TAB PO SCH (11:15)
--- NOTE | 2018-08-01 11:20 | HOSPPROG ---
Hospitalist Progress Note Assessment/Plan: Pleasant 72-year-old female with a history of multiple abdominal surgeries and adhesions who presents emergency department complaints of abdominal, pain distension and nausea. *SBO -supportive care -hx of laparotomies and resections -reviewed abd x ray today, no obstruction noted -she is having no pain, bowel sounds bit quiet today -trial of regular diet, doing well w clear liquids *nausea and vomiting -resolved *hyperkalemia -recheck K now *RA -med on hold *Pulmonary htn -resumed Sildenafil *hx of PE -resume Coumadin *headache -no c/o of this today -drinks caffeine regularly *plan: met w the patient w Dr Patel, will see how she is doing today and if eating and drinking; dc later Subjective: Bre is feeling better today. Objective: Vital Signs Temp Pulse Resp BP Pulse Ox 37.4 C 79 22 H 142/85 H 89 L 08/01/18 10:45 08/01/18 10:45 08/01/18 10:45 08/01/18 10:45 08/01/18 10:45 Laboratory Results 07/31/18 04:48 08/01/18 07:30 07/31/18 08/01/18 08/02/18 05:59 05:59 04:59 Intake Total 1000 2040 Output Total 100 1100 Balance 900 940 PT 24.9 SEC (12.0-15.0) H 07/31/18 04:48 INR 2.25 (0.83-1.16) H 07/31/18 04:48 - Physical Exam Constitutional: no apparent distress, not in pain Eyes: PERRL Ears, Nose, Mouth, Throat: hearing normal Cardiovascular: regular rate and rhythym, systolic murmur Respiratory: no respiratory distress Gastrointestinal: soft, non-tender abdomen, No normoactive bowel sounds ( hypoactive) Skin: warm Musculoskeletal: generalized weakness Neurologic: AAOx3 Psychiatric: interacting appropriately ICD10 Worksheet Patient Problems: Problems Problem Status Onset Small bowel obstruction Acute
--- NOTE | 2018-08-01 12:40 | SOAPPROG ---
SOAP Progress Note Assessment/Plan: Assessment: 72 yo admitted for sbo which has resolved Will advance diet Surgery will sign off Please do not hesitate to reach out if does not tolerate diet or other concerns. S: Feeling better. Passing flatus. No BM. Concerned about home medications Sitting in bed, appears comfortable BS present Soft Plan: 08/01/18 12:38 Objective: Vital Signs Temp Pulse Resp BP Pulse Ox 37.4 C 79 22 H 142/85 H 89 L 08/01/18 10:45 08/01/18 10:45 08/01/18 10:45 08/01/18 10:45 08/01/18 10:45 Laboratory Results 07/31/18 04:48 08/01/18 07:30 07/31/18 08/01/18 08/02/18 05:59 05:59 04:59 Intake Total 1000 2040 Output Total 100 1100 Balance 900 940 PT 24.9 SEC (12.0-15.0) H 07/31/18 04:48 INR 2.25 (0.83-1.16) H 07/31/18 04:48 ICD10 Worksheet Patient Problems: Problems Problem Status Onset Small bowel obstruction Acute
[2018-08-01] MEDS ORDERED: WARFARIN SODIUM 2.5 MG TAB PO SCH ×2 (16:00→21:00)
[2018-08-01] MEDS ORDERED: ZOLPIDEM TARTRATE 5 MG TAB PO SCH (21:00)
--- NOTE | 2018-08-02 03:08 | GDS ---
DISCHARGE DIAGNOSES: 1. Small bowel obstruction. 2. Nausea and vomiting. 3. Hyperkalemia. 4. Rheumatoid arthritis. 5. Pulmonary hypertension. 6. History of pulmonary emboli. 7. Headache. CONSULTATION: Dr. [place] Vanegas. HISTORY OF PRESENT ILLNESS: Briefly the patient is a 72-year-old female with a history of multiple a bdominal surgeries and adhesions. She presented to the emergency room with complaints of abdominal p ain, distention, nausea. She was seen and evaluated by Dr. Vanegas. She has been tolerating a clear l iquid diet and now a regular diet today. She never required an NG tube. She will follow up with Dr. Vanegas in the outpatient setting. HOSPITAL COURSE PER PROBLEM: 1. Small-bowel obstruction. Supportive care. She has a history of laparotomies and resections. He r abdominal x-ray from today noting no obstruction. She is tolerating a regular diet. 2. Nausea and vomiting, resolved. 3. Hyperkalemia resolved. 4. RA. Home med resumed. 5. Pulmonary hypertension. Resume Sildenafil. 6. History of PE. Resumed her Coumadin. 7. Headache. No complaints of this today. DISCHARGE CONDITION: Stable. Blood pressure is 142/85, heart rate is 79, respiratory rate of 22, O2 sats on 3 L are 89%. Temperature is 37.4 Celsius. DISCHARGE MEDICATIONS: Please see the EMR. DISCHARGE INSTRUCTIONS: 1. To further follow up with Dr. Vanegas. She will need a small-bowel follow-through for followup car e. 2. If she has worsening abdominal pain, nausea, vomiting, return to the ER. 3. Get potassium level checked with her primary care provider later this week. 4. Get an INR check later this week. /[id number]/MODL
[2018-08-03] MEDS ORDERED: WARFARIN SODIUM 2 MG TAB PO SCH ×2 (16:00→21:00)
== END 2018-08-01 14:17 | disposition home or self-care (01) | DRG 390 ==
LOC: CED 19:16 → CEDHOLD 21:19 → F3E 23:05
PROVIDERS: ADMIT Family Medicine; ATTEND Family Medicine
DX: K56.609 Unspecified intestinal obstruction, unspecified as to partial versus complete obstruction (principal); E86.9 Volume depletion, unspecified; E87.5 Hyperkalemia; M06.9 Rheumatoid arthritis, unspecified; I27.20 Pulmonary hypertension, unspecified; I10 Essential (primary) hypertension; G50.0 Trigeminal neuralgia; Z79.01 Long term (current) use of anticoagulants; Z86.711 Personal history of pulmonary embolism; G47.00 Insomnia, unspecified
CPT/HCPCS: 74177-PO; 80053-PO; 96374; J1170; J2060; J2405; Q9967

== ENCOUNTER 2018-08-29 17:14 | Inpatient (IN) | payer OTHER, BC ==
[2018-08-29] MEDS ORDERED: IPRATROPIUM/ALBUTEROL 3 ML DEYVIAL IH ONE (17:49)
[2018-08-29] MEDS ORDERED: NS 1,000 ML IV ONE (17:49)
[2018-08-29] MEDS ORDERED: ACETAMINOPHEN 500 MG TAB PO ONE (18:01)
--- NOTE | 2018-08-29 18:03 | EDPHY ---
H & P Time Seen by Provider: 08/29/18 17:47 HPI/ROS: Chief complaint. Cough, fever HPI. Patient is a 72-year-old female who began to have a sore throat 6 days ago. She saw her PCP 4 days ago and was started on a Z-Jose with diagnosis of bronchitis. No chest x-ray was performed. She has had a productive cough and runny nose. She has had a fever all week. Does not take antipyretics. She has shortness of breath especially with exertion but at rest as well. She was discharged from the hospital about a month ago for small-bowel obstruction and was discharged on 3 L of oxygen at night with an O2 saturation of about 89%. She does have some tightness in her chest when she is not using oxygen but not when she is using her oxygen. She has no abdominal pain or vomiting or diarrhea. She has had decreased oral intake as she says she is just not hungry. ROS 10 systems were reviewed and negative with the exception of the elements mentioned in the history of present illness Past Medical/Surgical History: Past medical history is significant for asthma, pulmonary hypertension, PE on Coumadin, rheumatoid arthritis, hypertension, trigeminal neuralgia, small-bowel obstruction after colon resection Social History: , nonsmoker, no alcohol Smoking Status: Never smoked Physical Exam: General Appearance: Alert well-developed female moderate distress. Vital signs show temp 38.5 degrees and O2 saturation on room air of 60%. 94-95% saturation on 6 L by nasal cannula. Blood pressure 145/77 Eyes: Pupils equal and round no pallor or injection. ENT, pharynx without injection. Mucous membranes are moist Respiratory: No retractions but inspiratory expiratory rhonchi and rales at both lung bases Cardiovascular: Regular rate and rhythm with a grade 3-4/6 systolic decrescendo murmur Gastrointestinal: Abdomen is soft and nontender, no masses, bowel sounds normal. Neurological: Awake and alert, sensory and motor exams grossly normal. Skin: Warm and dry, no rashes. Musculoskeletal: Neck is supple nontender. Extremities symmetrical, full range of motion. Psychiatric: Patient is oriented X 3, there is no agitation. Constitutional: Initial Vital Signs Temperature (C) 38.5 C H 08/29/18 17:21 Heart Rate 88 08/29/18 17:21 Respiratory Rate 22 H 12/01/18 17:21 Blood Pressure 145/77 H 08/29/18 17:21 O2 Sat (%) 60 L 08/29/18 17:21 O2 Delivery Mode Room Air O2 (L/minute) 6 Allergies/Adverse Reactions: ciprofloxacin [From Cipro] Allergy (Intermediate, Verified 08/29/18 17:28) CHILLS, FEVER cephalexin monohydrate [From Keflex] Allergy (Verified 08/29/18 17:28) CHILLS ciprofloxacin HCl [From Cipro] Allergy (Verified 08/29/18 17:28) ITCH Home Medications: Medication Instructions Recorded Sildenafil Citrate [Revatio 20 MG 40 mg PO BID 01/06/13 (*)] Zolpidem Tartrate [Ambien 10 mg] 5 - 10 mg PO HS 01/06/13 Furosemide [Lasix 40 MG (*)] 40 mg PO DAILY 01/08/14 Warfarin Sodium [Coumadin 2MG (*)] 2 mg PO MWF@01/08/14 celeCOXIB [CeleBREX] 100 mg PO BID 01/08/14 Albuterol [Proventil Inhaler HFA 1 - 2 puffs IH Q4H PRN 07/31/18 (*)] Methotrexate Sodium [Rheumatrex] 12.5 mg PO WE 07/31/18 Opsumit 10mg 10 mg PO DAILY 07/31/18 Warfarin Sodium [Coumadin 2.5MG 2.5 mg PO SUTUTHSA@07/31/18 (*)] traMADol [Ultram 50 mg (*)] 100 mg PO BID 07/31/18 Medical Decision Making - Diagnostics EKG Interpretation: EKG interpreted by me shows normal sinus rhythm with normal axis. Borderline first-degree AV block. QRS is normal there is no significant ST elevation or depression. No arrhythmia. The rate is 72 Imaging Results: Imaging Impressions Chest X-Ray 08/29/18 18:02 Impression: Viral pneumonitis versus patchy diffuse bronchopneumonia. Chest x-ray interpreted by me shows bilateral pneumonia Procedures: IV normal saline. Supplemental O2. Sepsis workup DuoNeb updraft Tylenol for fever ED Course/Re-evaluation: Point of care lactate is 0.79 Point of care Chem panel is normal Point of care troponin is normal Flu swab negative Point of care CBC is unsuccessful and will be sent to [facility] with blood cultures and PT INR to be run I queried the patient about her allergies to Cipro and Keflex. She tells me that they both make her cold and shaky however do not cause any rash. After blood cultures patient is given IV Unasyn and azithromycin. Serial evaluations in re-evaluation at 6:48 p.m. Patient and I discussed laboratory evaluation as well as imaging study results. We discussed treatment plan including recommendation for admission. She expresses understanding and agrees I consulted discussed the case with Dr. Gannon, hospitalist who agrees to the admission Differential Diagnosis: Patient has pneumonia. Failure of outpatient therapy with Z-Jose. Immunosuppressed on methotrexate. Multiple comorbidities including asthma and pulmonary hypertension. Patient has significant hypoxia on room air. No evidence for sepsis - Data Points Laboratory Results: Laboratory Results 08/29/18 18:15 08/29/18 08/29/18 08/29/18 18:21 18:20 18:19 WBC RBC Hgb Hct MCV MCH MCHC RDW Plt Count MPV Neut % (Auto) Lymph % (Auto) [place] % (Auto) Eos % (Auto) Baso % (Auto) Nucleat RBC Rel Count Absolute Neuts (auto) Absolute Lymphs (auto) Absolute Monos (auto) Absolute Eos (auto) Absolute Basos (auto) Absolute Nucleated RBC Immature Gran % Seg Neutrophils % Band Neutrophils % Lymphocytes % Monocytes % Eosinophils % Basophils % Metamyelocytes % Myelocytes % Promyelocytes % Blast Cells % Immature Gran # Absolute Seg Neuts Absolute Band Neuts Absolute Lymphocytes Absolute Monocytes Absolute Eosinophils Absolute Basophils Absolute Metamyelocyte Absolute Myelocytes Absolute Promyelocytes Absolute Plasma Cells Nucleated RBCs Absolute Blast Cells Plasma Cells % Platelet Estimate Polychromasia Elliptocytes Keratocytes PT INR POC Sodium 142 mEq/L mEq/L (135-145) POC Potassium 3.7 mEq/L mEq/L (3.3-5.0) POC Chloride 101.0 mEq/L mEq/L (97-110) POC Total CO2 28 mEq/L mEq/L (22-31) POC BUN 10 mg/dL mg/dL (7-23) POC Creatinine 1.0 mg/dL mg/dL (0.6-1.0) POC Glucose 104 mg/dL H mg/dL (70-100) POC Lactic Acid Matheus 0.8 mmol/L mmol/L (0.7-2.1) POC Calcium 9.0 mg/dL mg/dL (8.5-10.4) POC Troponin I 0.01 ng/mL ng/mL (0.00-0.08) 08/29/18 08/29/18 18:15 18:15 WBC 3.57 10^3/uL L 10^3/uL (3.80-9.50) RBC 4.03 10^6/uL L 10^6/uL (4.18-5.33) Hgb 12.0 g/dL L g/dL (12.6-16.3) Hct 38.4 % % (38.0-47.0) MCV 95.3 fL fL (81.5-99.8) MCH 29.8 pg pg (27.9-34.1) MCHC 31.3 g/dL L g/dL (32.4-36.7) RDW 19.2 % H % (11.5-15.2) Plt Count 138 10^3/uL L 10^3/uL (150-400) MPV 10.6 fL fL (8.7-11.7) Neut % (Auto) 72.5 % % (39.3-74.2) Lymph % (Auto) 16.0 % % (15.0-45.0) [place] % (Auto) 9.2 % % (4.5-13.0) Eos % (Auto) 1.1 % % (0.6-7.6) Baso % (Auto) 0.6 % % (0.3-1.7) Nucleat RBC Rel Count 0.0 % % (0.0-0.2) Absolute Neuts (auto) 2.59 10^3/uL 10^3/uL (1.70-6.50) Absolute Lymphs (auto) 0.57 10^3/uL L 10^3/uL (1.00-3.00) Absolute Monos (auto) 0.33 10^3/uL 10^3/uL (0.30-0.80) Absolute Eos (auto) 0.04 10^3/uL 10^3/uL (0.03-0.40) Absolute Basos (auto) 0.02 10^3/uL 10^3/uL (0.02-0.10) Absolute Nucleated RBC 0.00 10^3/uL 10^3/uL (0-0.01) Immature Gran % 0.6 % % (0.0-1.1) Seg Neutrophils % 90.9 % % Band Neutrophils % 0.0 % % Lymphocytes % 5.1 % % Monocytes % 3.0 % % Eosinophils % 0.0 % % Basophils % 0.0 % % Metamyelocytes % 1.0 % % Myelocytes % 0.0 % % Promyelocytes % 0.0 % % Blast Cells % 0.0 % % Immature Gran # 0.02 10^3/uL 10^3/uL (0.00-0.10) Absolute Seg Neuts 3.25 10^3/uL 10^3/uL (1.70-6.50) Absolute Band Neuts 0.00 10^3/uL 10^3/uL (0.00-0.70) Absolute Lymphocytes 0.18 10^3/uL L 10^3/uL (1.00-3.00) Absolute Monocytes 0.11 10^3/uL L 10^3/uL (0.30-0.80) Absolute Eosinophils 0.00 10^3/uL L 10^3/uL (0.03-0.40) Absolute Basophils 0.00 10^3/uL L 10^3/uL (0.02-0.10) Absolute Metamyelocyte 0.04 10^3/mL H 10^3/mL (0.00-0.00) Absolute Myelocytes 0.00 10^3/mL 10^3/mL (0.00-0.00) Absolute Promyelocytes 0.00 10^3/uL 10^3/uL (0.00-0.00) Absolute Plasma Cells 0.00 10^3/uL 10^3/uL (0.00-0.00) Nucleated RBCs 0 /100 WBC /100 WBC (0-0) Absolute Blast Cells 0.00 10^3/uL 10^3/uL (0.00-0.00) Plasma Cells % 0.0 % % Platelet Estimate DECREASED L (ADEQ) Polychromasia 1+ H Elliptocytes 1+ H Keratocytes 1+ H PT 26.0 SEC H SEC (12.0-15.0) INR 2.38 H (0.83-1.16) POC Sodium POC Potassium POC Chloride POC Total CO2 POC BUN POC Creatinine POC Glucose POC Lactic Acid Matheus POC Calcium POC Troponin I Medications Given: Discontinued Medications Acetaminophen (Tylenol) 1,000 mg PO EDNOW ONE Stop: 08/29/18 18:02 Last Admin: 08/29/18 18:09 Dose: 1,000 mg Albuterol/Ipratropium (Duoneb) 3 ml IH EDNOW ONE Stop: 08/29/18 17:50 Last Admin: 08/29/18 18:09 Dose: 3 ml Sodium Chloride (Ns) 1,000 mls @ 0 mls/hr IV ONCE ONE; Wide Open PRN Reason: Protocol Stop: 08/29/18 17:50 Last Admin: 08/29/18 18:10 Dose: 1,000 mls Azithromycin 500 mg/ Sodium (Chloride) 255 mls @ 255 mls/hr IV EDNOW ONE PRN Reason: Protocol Stop: 08/29/18 19:46 Last Admin: 08/29/18 19:32 Dose: 255 mls Ampicillin Sodium/Sulbactam (Sodium 1.5 gm/ Sodium Chloride) 100 mls @ 400 mls/ hr IV EDNOW ONE PRN Reason: Protocol Stop: 08/29/18 19:01 Last Admin: 08/29/18 19:21 Dose: 100 mls Point of Care Test Results: Chemistry 08/29/18 08/29/18 18:20 18:19 POC Sodium 142 mEq/L mEq/L (135-145) POC Potassium 3.7 mEq/L mEq/L (3.3-5.0) POC Chloride 101.0 mEq/L mEq/L (97-110) POC Total CO2 28 mEq/L mEq/L (22-31) POC BUN 10 mg/dL mg/dL (7-23) POC Creatinine 1.0 mg/dL mg/dL (0.6-1.0) POC Glucose 104 mg/dL H mg/dL (70-100) POC Calcium 9.0 mg/dL mg/dL (8.5-10.4) POC Troponin I 0.01 ng/mL ng/mL (0.00-0.08) Blood Gas/Lactic Acid-Venous 08/29/18 18:21 POC Lactic Acid Matheus 0.8 mmol/L mmol/L (0.7-2.1) Urine Dip Collection Date 08/29/18 Collection Time 18:45 Specific [place] (1.002-1.030) 1.030 PH (5.0-7.5) 6.5 Leukocytes (Negative) Negative Nitrites (Negative) Negative Protein (Negative) 3+ Glucose (Negative) Negative Ketones (Negative) Trace Urobilnogen (0.2-1.0 EU) 1.0 Bilirubin (Negative) Negative Blood (Negative) 1+ Departure - Departure Disposition: [facility] Inpatient Acute Clinical Impression: Pneumonia Qualifiers: Pneumonia type: due to unspecified organism Laterality: bilateral Lung location : lower lobe of lung Qualified Code(s): J18.1 - Lobar pneumonia, unspecified organism Condition: Fair
[2018-08-29] MEDS ORDERED: AMPICILLIN/SULBACTAM 1.5 GM in NS 100 ML IV ONE (18:47)
[2018-08-29] MEDS ORDERED: AZITHROMYCIN IV 500 MG in NS 250 ML IV ONE (18:47)
--- NOTE | 2018-08-29 19:13 | CPEKG ---
Test Reason : OPEN Blood Pressure : / mmHG Vent. Rate : 072 BPM Atrial Rate : 073 BPM P-R Int : 219 ms QRS Dur : 101 ms QT Int : 417 ms P-R-T Axes : 049 059 036 degrees QTc Int : 457 ms Sinus rhythm Borderline prolonged [place] interval Confirmed by Koffi Akers ([id number]) on 08/29/2018 7:13:08 PM Referred By: Confirmed By:Koffi Akers
[2018-08-29 20:34] LABS: INR 2.38 (0.83-1.16)
[2018-08-29 20:40] LABS: PLATELET COUNT 138 10^3/uL (150-400)
[2018-08-29] MEDS ORDERED: ALBUTEROL 3 ML DEYVIAL IH PRN (22:16)
[2018-08-29] MEDS ORDERED: ONDANSETRON 4 MG/2 ML VIAL IVP PRN (22:16)
[2018-08-29] MEDS ORDERED: ONDANSETRON DISINTEGRATING 4 MG TAB PO PRN (22:16)
[2018-08-29] MEDS ORDERED: methylPREDNISolone SOD SUCC 125 MG/2 ML VIAL IVP ONE (22:54)
[2018-08-29] MEDS: WARFARIN SODIUM 2.5 MG TAB PO SCH (23:27)
[2018-08-30] MEDS: AMPICILLIN/SULBACTAM 3 GM in NS 100 ML IV SCH ×5 (01:11→23:19)
--- NOTE | 2018-08-30 01:55 | PDGENHP ---
History and Physical - Chief Complaint Shortness of breath - History of Present Illness 72 yo F w/ hx of ?asthma, RA, PE, and pHTN presents with shortness of breath. The patient saw her PCP on Friday and was started on azithromycin for presumed bronchitis. Despite this, her sore throat, subjective fevers, body aches, and shortness of breath worsened. She presented to the [facility] today as a result. In the [facility] her evaluation was notable for fever, hypoxia, and bilateral infiltrates on CXR. She is being admitted for treatment of this. Review of the chart demonstrates a history of asthma. However, the patient tells me she does not have asthma. She does use 2 inhalers at home; she does not remember the names of these. She is clearly wheezing on my evaluation and tells me last time something like this happened she improved with steroids. She uses 2 L of O2 nocturnally at baseline. Case discussed with Dr. Gannon; records reviewed and summarized above. History Information - Allergies/Home Medication List Allergies/Adverse Reactions: ciprofloxacin [From Cipro] Allergy (Intermediate, Verified 08/29/18 17:28) CHILLS, FEVER cephalexin monohydrate [From Keflex] Allergy (Verified 08/29/18 17:28) CHILLS ciprofloxacin HCl [From Cipro] Allergy (Verified 08/29/18 17:28) ITCH Home Medications: Sildenafil Citrate [Revatio 20 MG (*)] 40 mg PO BID 01/06/13 [Last Taken 08:00] Zolpidem Tartrate [Ambien 10 mg] 5 mg PO HS 01/06/13 [Last Taken 08/28/18] Furosemide [Lasix 40 MG (*)] 20 mg PO DAILY 01/08/14 [Last Taken 08/24/18] Warfarin Sodium [Coumadin 2MG (*)] 2 mg PO MWF@21 01/08/14 [Last Taken 08/28/18] celeCOXIB [CeleBREX] 100 mg PO BID 01/08/14 [Last Taken 08/29/18 08:00] Albuterol [Proventil Inhaler HFA (*)] 1 - 2 puffs IH Q4H PRN 07/31/18 [Last Taken Unknown] Methotrexate Sodium [Rheumatrex] 12.5 mg PO WE 07/31/18 [Last Taken 08/26/18] Opsumit 10mg 10 mg PO DAILY 07/31/18 [Last Taken 08/29/18] Warfarin Sodium [Coumadin 2.5MG (*)] 2.5 mg PO SUTUTHSA@21 07/31/18 [Last Taken 08/27/18] traMADol [Ultram 50 mg (*)] 100 mg PO BID 07/31/18 [Last Taken 08/29/18 08:00] I have personally reviewed and updated: family history, medical history - Past Medical History Additional medical history: PE on Coumadin. Pulmonary hypertension. Asthma. RA. HTN. Trigeminal neuralgia. "hole in heart" - Surgical History Additional surgical history: Patient with a history of exploratory laparotomy for what was thought to be volvulus at age 15 with normal findings, ectopic , cholecystectomy open, ex lap for lysis of adhesions 2009 with partial bowel resection. Two thousand [age] ventral hernia repair. - Family History Additional family history: Patient has 9 siblings altogether. She has 3 living siblings still that live in various states. Father age 59 due to massive MD. Mother age 86 secondary to CHF. Eldest brother related to complications of endocarditis. Another brother with history of cardiac disease. Eldest sister with history of cardiac disease and lung cancer. Another sister with history of fatty liver disease and subsequently developed liver cancer. A brother with history of lymphoma - Social History Smoking Status: Never smoked Additional social history: Patient is to has been of 47 years. She has 2 children and several grandchildren. Cor status-full. Review of Systems Review of Systems: ROS: 10pt was reviewed & negative except for what was stated in HPI & below Physical Exam Physical Exam: Temp Pulse Resp BP Pulse Ox 37.0 C 68 16 143/79 H 92 08/30/18 00:00 08/30/18 00:00 08/30/18 00:00 08/30/18 00:00 08/30/18 00:00 O2 (L/minute) 5 Constitutional: no apparent distress, obese Eyes: PERRL, EOMI Ears, Nose, Mouth, Throat: moist mucous membranes, no oral mucosal ulcers Cardiovascular: regular rate and rhythym, systolic murmur Respiratory: reduced air movement, expiratory wheeze, rhonchi Gastrointestinal: normoactive bowel sounds, soft, non-tender abdomen Skin: warm, normal color Musculoskeletal: full muscle strength, no muscle tenderness Neurologic: AAOx3, CN II-XII Intact Psychiatric: interacting appropriately, not anxious Lab Data & Imaging Review 08/29/18 18:15 WBC 3.57 10^3/uL (3.80-9.50) L 08/29/18 18:15 RBC 4.03 10^6/uL (4.18-5.33) L 08/29/18 18:15 Hgb 12.0 g/dL (12.6-16.3) L 08/29/18 18:15 Hct 38.4 % (38.0-47.0) 08/29/18 18:15 MCV 95.3 fL (81.5-99.8) 08/29/18 18:15 MCH 29.8 pg (27.9-34.1) 08/29/18 18:15 MCHC 31.3 g/dL (32.4-36.7) L 08/29/18 18:15 RDW 19.2 % (11.5-15.2) H 08/29/18 18:15 Plt Count 138 10^3/uL (150-400) L 08/29/18 18:15 MPV 10.6 fL (8.7-11.7) 08/29/18 18:15 Neut % (Auto) 72.5 % (39.3-74.2) 08/29/18 18:15 Lymph % (Auto) 16.0 % (15.0-45.0) 08/29/18 18:15 [place] % (Auto) 9.2 % (4.5-13.0) 08/29/18 18:15 Eos % (Auto) 1.1 % (0.6-7.6) 08/29/18 18:15 Baso % (Auto) 0.6 % (0.3-1.7) 08/29/18 18:15 Nucleat RBC Rel Count 0.0 % (0.0-0.2) 08/29/18 18:15 Absolute Neuts (auto) 2.59 10^3/uL (1.70-6.50) 08/29/18 18:15 Absolute Lymphs (auto) 0.57 10^3/uL (1.00-3.00) L 08/29/18 18:15 Absolute Monos (auto) 0.33 10^3/uL (0.30-0.80) 08/29/18 18:15 Absolute Eos (auto) 0.04 10^3/uL (0.03-0.40) 08/29/18 18:15 Absolute Basos (auto) 0.02 10^3/uL (0.02-0.10) 08/29/18 18:15 Absolute Nucleated RBC 0.00 10^3/uL (0-0.01) 08/29/18 18:15 Immature Gran % 0.6 % (0.0-1.1) 08/29/18 18:15 Seg Neutrophils % 90.9 % 08/29/18 18:15 Band Neutrophils % 0.0 % 08/29/18 18:15 Lymphocytes % 5.1 % 08/29/18 18:15 Monocytes % 3.0 % 08/29/18 18:15 Eosinophils % 0.0 % 08/29/18 18:15 Basophils % 0.0 % 08/29/18 18:15 Metamyelocytes % 1.0 % 08/29/18 18:15 Myelocytes % 0.0 % 08/29/18 18:15 Promyelocytes % 0.0 % 08/29/18 18:15 Blast Cells % 0.0 % 08/29/18 18:15 Immature Gran # 0.02 10^3/uL (0.00-0.10) 08/29/18 18:15 Absolute Seg Neuts 3.25 10^3/uL (1.70-6.50) 08/29/18 18:15 Absolute Band Neuts 0.00 10^3/uL (0.00-0.70) 08/29/18 18:15 Absolute Lymphocytes 0.18 10^3/uL (1.00-3.00) L 08/29/18 18:15 Absolute Monocytes 0.11 10^3/uL (0.30-0.80) L 08/29/18 18:15 Absolute Eosinophils 0.00 10^3/uL (0.03-0.40) L 08/29/18 18:15 Absolute Basophils 0.00 10^3/uL (0.02-0.10) L 08/29/18 18:15 Absolute Metamyelocyte 0.04 10^3/mL (0.00-0.00) H 08/29/18 18:15 Absolute Myelocytes 0.00 10^3/mL (0.00-0.00) 08/29/18 18:15 Absolute Promyelocytes 0.00 10^3/uL (0.00-0.00) 08/29/18 18:15 Absolute Plasma Cells 0.00 10^3/uL (0.00-0.00) 08/29/18 18:15 Nucleated RBCs 0 /100 WBC (0-0) 08/29/18 18:15 Absolute Blast Cells 0.00 10^3/uL (0.00-0.00) 08/29/18 18:15 Plasma Cells % 0.0 % 08/29/18 18:15 Platelet Estimate DECREASED (ADEQ) L 08/29/18 18:15 Polychromasia 1+ H 08/29/18 18:15 Elliptocytes 1+ H 08/29/18 18:15 Keratocytes 1+ H 08/29/18 18:15 PT 26.0 SEC (12.0-15.0) H 08/29/18 18:15 INR 2.38 (0.83-1.16) H 08/29/18 18:15 POC Sodium 142 mEq/L (135-145) 08/29/18 18:19 POC Potassium 3.7 mEq/L (3.3-5.0) 08/29/18 18:19 POC Chloride 101.0 mEq/L (97-110) 08/29/18 18:19 POC Total CO2 28 mEq/L (22-31) 08/29/18 18:19 POC BUN 10 mg/dL (7-23) 08/29/18 18:19 POC Creatinine 1.0 mg/dL (0.6-1.0) 08/29/18 18:19 POC Glucose 104 mg/dL (70-100) H 08/29/18 18:19 POC Lactic Acid Matheus 0.8 mmol/L (0.7-2.1) 08/29/18 18:21 POC Calcium 9.0 mg/dL (8.5-10.4) 08/29/18 18:19 POC Troponin I 0.01 ng/mL (0.00-0.08) 08/29/18 18:20 Procalcitonin 0.08 ng/mL (0.02-0.10) 08/29/18 18:15 Imaging Review: Imaging Impressions Chest X-Ray 08/29/18 18:02 Impression: Viral pneumonitis versus patchy diffuse bronchopneumonia. Visualized and Interpreted EKG results: Yes EKG Interpretation: Positive for: normal sinsus rhythm, T waves inversion ( Anterior leads; unchanged from prior comparison) Assessment & Plan Assessment: 72 yo F w/ ?asthma, RA, hx PE, and pHTN presents with bilateral pneumonia and asthma exacerbation. Plan: 1. Bilateral pneumonia - Clinical picture consistent with viral syndrome. However, age and coexisting pulmonary disease makes her high risk so covering bacterial possibilities is appropriate. She has allergies to cephalosporins and fluoroquinolones. - S/p 5 doses of azithromycin - Obtain respiratory PCR, procalcitonin - Blood cultures ordered - Will treat with Unasyn noting multiple allergies, d/c if viral etiology found 2. Asthma/RAD with acute exacerbation - Diffusely wheezing on my exam with poor air movement. Patient denies history of asthma but I wonder if she is unclear on this as chart states otherwise. - Methylprednisolone x1 now, prednisone 40 mg daily thereafter - Infectious treatment as above - Albuterol QID myke + q2h PRN 3. AHRF - Currently with O2 sats in the low 90's while on 5 L O2 via NC. This is multifactorial from pneumonia, asthma exacerbation, and known pHTN. - Acute management as above - O2 PRN to maintain sats >90% 4. pHTN - Continue home medications 5. Hx PE - On warfarin, INR therapeutic on admission. - Warfarin pharmacy to dose ordered - Monitor daily INR 6. RA - On methotrexate weekly Diet - Regular Code - Full Ppx - warfarin Dispo - Admit under observation status
[2018-08-30] MEDS: ALBUTEROL 3 ML DEYVIAL IH SCH ×4 (05:05→21:47)
[2018-08-30 05:32] LABS: PLATELET COUNT 132 10^3/uL (150-400)
[2018-08-30 05:38] LABS: INR 2.65 (0.83-1.16); PROTIME(PATIENT) 28.2 SEC (12.0-15.0)
[2018-08-30] MEDS: methylPREDNISolone SOD SUCC 125 MG/2 ML VIAL IVP SCH ×4 (05:56→23:20)
[2018-08-30] MEDS: ACETAMINOPHEN 325 MG TAB PO PRN (08:38)
[2018-08-30] MEDS ORDERED: predniSONE 20 MG TAB PO SCH (09:00)
--- NOTE | 2018-08-30 10:30 | GCON ---
CLIENT ARCHITECT CONSULTATION REASON FOR ADMISSION: Pneumonia, hypercarbic respiratory failure. HISTORY OF PRESENT ILLNESS: The patient is a very pleasant 72-year-old white female with extensive p ast medical history, including rheumatoid arthritis, pulmonary embolism with pulmonary hypertension f or which she is seen by pulmonary hypertensive doctors at [place]. She was initially seen by her primary care physician earlier in the week, begun on azithromycin. This worsened in severity and she sought medical attention, and was subsequently admitted on 08/29, with a diagnosis of bilateral pneu monia. She was initially admitted to the floor; however, earlier this morning, she was found to be m arkedly somnolent. ABG revealed hypercarbic respiratory failure and she was transferred to the [facility] unit. Currently, the patient states she feels markedly better. She does admit to a cough that is productiv e of yellow sputum. She denies hemoptysis. There is no chest pain, pleuritic-type chest pain, or an caroline equivalent. There is no nausea, vomiting, or diarrhea. She attributes her somnolence to taking her Ambien later in the evening. PAST MEDICAL HISTORY: Again, significant for pulmonary hypertension, rheumatoid arthritis, hypertens ion, possible asthma, and history of pulmonary embolism for which she is on Coumadin. REVIEW OF SYSTEMS: 10-point review of systems is performed and negative, except for what is listed i n HPI. ALLERGIES: Ciprofloxacin and Keflex. FAMILY HISTORY: Noncontributory. SOCIAL HISTORY: Distant history of tobacco use, none for over 40 years. She denies any alcohol use. She is , has 2 children. She has lived in [place] for many years, is originally from [place]. 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 PHYSICAL EXAM: VITAL SIGNS: Blood pressure 170/79, pulse 74, respirations are 28, temperature is 36 .7, oxygen saturation 94% on 6 L. GENERAL: She is a mildly overweight, but very pleasant elderly wh ite female who is resting comfortably on nasal cannula oxygen. HEENT: Eyes: L[place], EOMI. Throat sh ows no erythema or tonsillar hypertrophy. NECK: Supple. No cervical adenopathy. HEART: Regular r ate and rhythm with a 2/6 systolic murmur at the left sternal border without radiation. LUNGS: Dimi nished breath sounds. Bibasilar rhonchi. ABDOMEN: Soft, nontender. Bowel sounds are present in al l 4 quadrants. EXTREMITIES: No clubbing, cyanosis, or edema. LABORATORY/IMAGING: White count 3, hemoglobin 12, hematocrit 40, platelet count is 132. Sodium 139, potassium 4.9, chloride 105, CO2 27, BUN 14, creatinine 0.9, glucose is 141. Arterial blood gas: p H 7.29, pCO2 of 55, pO2 of 71, bicarb 27, oxygen saturation is 93%. Chest x-ray reveals bilateral lower lobe infiltrates with hypoinflation. IMPRESSION: 1. Acute hypercarbic respiratory failure, secondary to pneumonia. 2. Community-acquired pneumonia. 3. History of pulmonary hypertension for which she is on sildenafil. 4. Rheumatoid arthritis. 5. Possible history of asthma. 6. History of pulmonary embolism for which she is on Coumadin. RECOMMENDATIONS: 1. Agree with current antibiotic coverage. 2. Agree with IV steroids. 3. BiPAP as needed. 4. Will check an echocardiogram. 5. DVT and PE prophylaxis. 6. Stress ulcer prophylaxis. 7. Continue her home medications, including sildenafil, Lasix, and Coumadin. Thank you very much. /[id number]/MODL
[2018-08-30] MEDS: SILDENAFIL CITRATE 20 MG TAB PO SCH ×2 (10:48→20:40)
[2018-08-30] MEDS: OPSUMIT 10 MG PO SCH (10:48)
[2018-08-30] MEDS ORDERED: SODIUM CL FOR INH 10% 15 ML VIAL.NEB IH ONE (11:00)
--- NOTE | 2018-08-30 12:25 | ECHO ---
[email or web address] [address] [address] Main: [phone] Fax: Transthoracic Echocardiogram Name: ABRAHAM TROTTER MR#: [id number] Study Date: 08/30/2018 Study Time: 11:10 AM Date of : 1945 Age: 72 year(s) Height: 165.1 cm (65 in.) Weight: 102.97 kg (227 lb.) BSA: 2.09 m2 Gender: Female Examination: Echo Indication: Dyspnea/pulmonary HTN Image Quality: Technically Difficult Contrast: Requested by: Marek Zimmer BP: 134 mmHg/73 mmHg Heart Rate: Rhythm: Indication: Dyspnea/pulmonary HTN Procedure Staff Foley Artist: Lorenza Henderson RDCS Reading Physician: Sam Shields MD Requesting Provider: Conclusions: 1)Normal LV size and systolic function with a LVEF of 70% and normal wall motions. 2)Mild concentric LVH with mild diastolic dsyfunction noted. 3)Mild to moderate RV enlargement noted with normal RVEF. 4)Mild left atrial and mild-moderate right atrial enlargement(s) noted. 5)Aortic valve sclerosis without or AI noted. 6)Trivial MR without MV prolapse. 7)Mild TR with estimated PAS 66mmHg consistent with moderate pulmonary HTN. 8)Moderate PI noted. Measurements: Chambers Valvular Assessment AV/MV Valvular Assessment TV/PV Normal Normal Normal Name Value Range Name Value Range Name Value Range Ao Annie (MM): 3.1 cm (2.2 cm-3.7 AV Vmax: 2.26 m/s (1 m/s-1.7 TR Vmax: 3.80 mm/s ( - ) cm) m/s) TR PGmax: 58 mmHg ( - ) IVSd (2D): 1.2 cm (0.6 cm-1.1 AV meanP mmHg ( - ) syst. PAP: 68 mmHg ( - ) cm) LVDd (2D): 4.8 cm (3.9 cm-5.3 cm) LVDs (2D): 2.9 cm (2.1 cm-4 cm) LVPWd (2D): 0.9 cm ( - ) LVEF (2D): 70 (>=54 %) Continued Measurements: Chambers Valvular Assessment AV/MV Valvular Assessment TV/PV Name Value Name Value Name Value LADs: 4.0 cm MV E' Septal: 0.05 m/s CVP (est.): 10 mmHg Patient: ABRAHAM TROTTER Study Date: 08/30/2018 Page 1 of 2 11:10 AM LADs Lon.9 cm LA Area: 23.2 cm2 Additional Vessels Name Value Ao Ascendin.5 cm Inferior Vena Cava: 2.9 cm Findings: Left Ventricle: Normal size left ventricle. Mild concentric LV hypertrophy. Normal global systolic LV function. EF is 70 %. No regional wall motion abnormality. Right Ventricle: Mildly to moderately dilated right ventricle. Normal RV function. Left Atrium: The left atrium is mildly dilated. Right Atrium: The right atrium is mildly to moderately dilated. Mitral Valve: Mild mitral annular calcification. Trivial mitral valve regurgitation. Aortic Valve: Minimal aortic cusp calcification is noted. There is no aortic valve regurgitation. No aortic valve stenosis is present. Tricuspid Valve: The tricuspid valve is normal in appearance and function. Mild tricuspid regurgitation is present. The pulmonary artery pressure is moderately increased. RVSP is 68mmHG.. Pulmonic Valve: Pulmonary valve not well visualized. Moderate pulmonic valve regurgitation is noted. PV regurgitation could be underestimated.. Aorta: The aorta is normal. IVC: Mildly dilated IVC.. Pericardium: No pericardial effusion. Exam Comments: Pt delirious and thrashing throughout exam.. (No Signature Object) Patient: ABRAHAM TROTTER Study Date: 08/30/2018 Page 2 of 2 11:10 AM [id number]
--- NOTE | 2018-08-30 13:13 | HOSPPROG ---
Hospitalist Progress Note Assessment/Plan: 72-year-old with a history significant for pulmonary hypertension, rheumatoid arthritis and a history of pulmonary embolic disease is admitted with bilateral pneumonia. She has been sick for the last several days and was started on Zithromax as an outpatient by her primary care physician. On admission she was noted to be somnolent with severe hypoxia and blood gas showed mild acidosis with elevated pCO2 she was transferred to the step-down unit for possible BiPAP. Discussed with pulmonology # bilateral pneumonia with acute hypoxic and hypercapnic respiratory failure. * Appreciate pulmonology consult * Echocardiogram * Continue antibiotics * Continue steroids and nebulizers * BiPAP as needed * Respiratory viral panel shows RSV however patient at risk for Pneumocystis and this test is pending # rheumatoid arthritis on methotrexate, will hold this temporarily due to her acute illness # pulmonary hypertension, followed at the [facility]. Continue sildenafil. * Echocardiogram # history of pulmonary embolus, continue anticoagulation Due to severity of patient's illness she will need greater than 2 midnight stay for evaluation and treatment of her pneumonia and respiratory failure Subjective: Patient new to [place] and chart reviewed, complains of shortness of breath and somnolence no chest pain Objective: Vital Signs Temp Pulse Resp BP Pulse Ox 36.6 C 77 28 H 142/66 H 93 08/30/18 11:58 08/30/18 12:47 08/30/18 12:47 08/30/18 11:58 08/30/18 12:47 Microbiology 08/29/18 22:47 Respiratory Panel (PCR) - Final Nasal, Sinus - Swab Respiratory Syncytial Virus Laboratory Results 08/30/18 04:46 08/30/18 04:46 08/29/18 08/30/18 08/31/18 05:59 05:59 05:59 Intake Total 1750 Balance 1750 PT 28.2 SEC (12.0-15.0) H 08/30/18 04:46 INR 2.65 (0.83-1.16) H 08/30/18 04:46 - Physical Exam Constitutional: not in pain, uncomfortable Eyes: PERRL Ears, Nose, Mouth, Throat: dry mucous membranes Cardiovascular: regular rate and rhythym, systolic murmur Respiratory: reduced air movement, expiratory wheeze, respiratory distress Gastrointestinal: soft, non-tender abdomen Genitourinary: no bladder fullness Skin: normal color Neurologic: No facial droop Psychiatric: other (Somnolent) ICD10 Worksheet Patient Problems: Problems Problem Status Onset Small bowel obstruction Acute Pneumonia Acute
--- NOTE | 2018-08-30 17:03 | PDMN ---
Medical Necessity Medical necessity: [facility] M282 Pneumonia, CAP: 72 yo presents w/ SOB recently started on po antibx as OP for presumed bronchitis. Further assessment reveals B/L pneumonia, initially admit to OBS but cont w/ acute hypoxic and hypercapnic resp fx, pulmonology consult ordered, echo ordered, cont antibx, steroids and nebs, BiPAP PRN, important to note pt at risk for pneumonicystis - test pending. Pt resp rate cont to be in upper 20s, O2 requirements increased. Due to severity of patient's illness she will need greater than 2 midnight stay for evaluation and treatment of her pneumonia and respiratory failure. Hx asthma, RA, PE, pHTN. Change to IP status 08/30/18@1525 per MD order
[2018-08-30] MEDS: ZOLPIDEM TARTRATE 5 MG TAB PO PRN (20:41)
[2018-08-30] MEDS: WARFARIN SODIUM 2.5 MG TAB PO SCH ×2 (20:41→20:42)
[2018-08-31] MEDS: AMPICILLIN/SULBACTAM 3 GM in NS 100 ML IV SCH (05:04)
[2018-08-31] MEDS: methylPREDNISolone SOD SUCC 125 MG/2 ML VIAL IVP SCH (05:05)
[2018-08-31] MEDS: GUAIFENESIN/DM 10 ML UDCUP PO PRN ×2 (05:05→17:48)
[2018-08-31] MEDS: BENZONATATE 100 MG CAP PO PRN ×3 (05:05→20:26)
[2018-08-31 05:48] LABS: PLATELET COUNT 139 10^3/uL (150-400)
[2018-08-31] MEDS: ALBUTEROL 3 ML DEYVIAL IH SCH ×4 (06:05→21:41)
[2018-08-31 06:39] LABS: INR 4.56 (0.83-1.16); PROTIME(PATIENT) 42.7 SEC (12.0-15.0)
[2018-08-31] MEDS: OPSUMIT 10 MG PO SCH (08:42)
[2018-08-31] MEDS: SILDENAFIL CITRATE 20 MG TAB PO SCH ×2 (08:42→21:38)
--- NOTE | 2018-08-31 09:36 | PDINTPN ---
Wirer Helper Progress Note Assessment/Plan: ASSESSMENT AND PLAN 72 yo F with RSV pneumonitis with acute on chronic hypoxemic and hypercarbic respiratory failure in the setting of underlying RA on MTX. She is clinically improving but still ill. # RSV pneumonitis, procalc low # acute on chronic hypoxemic hypercarbic resp failure, improving # PAH on ERA and PDE5i as OP # hypervolemia PLAN # procalc low, stop abx and follow # PH specific therapies can worsen V/Q matching and hypoxemia however okay to continue meds as patient is clinically improving # add back diuresis # stop steroids given clinical improvement and need to minimize immunosuppression # follow up culture data and PJP silver stain # # Feeding - as tolerated # Analgesia APAP, fentanyl # Sedation propofol # Thromboprophylaxis - SQ hep # Head of bed elevated # Ulcer prophylaxis - not indicated # Glucose SSI # Skin no skin breakdown # Delirium - delirium precautions CX Data NGTD, procal 0.08 CXR 08/30/18 bibasilar airspace opacities Subjective: Slept well, feeling better today. Denies chest pain, shortness of breath, fevers chills, increased leg swelling or headaches. Objective: Vital Signs Temp Pulse Resp BP Pulse Ox 36.4 C 66 24 H 124/89 H 93 08/31/18 08:55 08/31/18 08:55 08/31/18 08:55 08/31/18 08:55 08/31/18 08:55 Laboratory Results 08/31/18 05:00 08/31/18 05:00 08/30/18 08/31/18 09/01/18 05:59 05:59 05:59 Intake Total 818 Balance 818 PT 42.7 SEC (12.0-15.0) H 08/31/18 05:00 INR 4.56 (0.83-1.16) H 08/31/18 05:00 I personally reviewed interpreted patient's radiographic images. Chest x-ray with bibasilar airspace opacities. Physical Exam - Physical Exam General Appearance: alert, no apparent distress EENT: PERRL/EOMI, normal ENT inspection Neck: non-tender, full range of motion Respiratory: chest non-tender, lungs clear, normal breath sounds Cardiac/Chest: normal peripheral pulses (Prominent S2), regular rate, rhythm Abdomen: normal bowel sounds, non-tender Rectal: deferred Back: Normal inspection Skin: normal color, warm/dry, No cyanosis Lymphatic: no adenopathy Extremities: normal range of motion Neuro/Psych: no motor/sensory deficits, alert, normal mood/affect, oriented x 3 ICD10 Worksheet Patient Problems: Problems Problem Status Onset Pneumonia Acute Small bowel obstruction Acute
--- NOTE | 2018-08-31 17:45 | HOSPPROG ---
Hospitalist Progress Note Assessment/Plan: Subjective Follow-up on bilateral pneumonia. Patient states she is breathing better today as compared to when she 1st came in. We reviewed her respiratory PCR study which showed evidence of RSV pneumonia. She appears to understand this is a viral infection. Case reviewed with patient's nurse today as well and antibiotics and steroids were held. Objective Vitals as detailed below Exam General-awake alert conversant no acute distress Heart-regular rate and rhythm no murmurs Lungs-mild wheezing throughout all lung owens, normal respiratory effort Abdomen-soft nontender nondistended normal bowel sounds -no Castro catheter in place Extremities-no significant pitting edema or calf pain with palpation Skin-no concerning skin rashes noted Labs as detailed below Assessment plan Pneumonia-patient was positive for RSV. Antibiotics and steroids have been stopped today. Monitor closely overnight. Acute on chronic hypoxic respiratory failure-patient states her baseline oxygen need is between 2 and 3 L. She is currently on 3 L today. Continue with albuterol four times daily. Pulmonary hypertension-patient is followed at the [place] [facility]. Continue sildenafil and opsumit. History of pulmonary embolism-Coumadin is currently on hold as INR was supratherapeutic today at 4.5. Rheumatoid arthritis-patient is typically on methotrexate which has been placed on hold in light of presentation with pneumonia. DVT prophylaxis-patient is anticoagulated. Disposition-I would anticipate she would likely return home once stable from medical standpoint. Objective: Vital Signs Temp Pulse Resp BP Pulse Ox 36.4 C 77 20 129/86 H 93 08/31/18 08:55 08/31/18 14:09 08/31/18 14:09 08/31/18 14:09 08/31/18 14:09 Laboratory Results 08/31/18 05:00 08/31/18 05:00 08/30/18 08/31/18 09/01/18 05:59 05:59 05:59 Intake Total 818 650 Balance 818 650 PT 42.7 SEC (12.0-15.0) H 08/31/18 05:00 INR 4.56 (0.83-1.16) H 08/31/18 05:00 ICD10 Worksheet Patient Problems: Problems Problem Status Onset Pneumonia Acute Small bowel obstruction Acute
[2018-08-31] MEDS ORDERED: WARFARIN SODIUM 2 MG TAB PO SCH (21:00)
[2018-08-31] MEDS: ZOLPIDEM TARTRATE 5 MG TAB PO PRN (21:20)
[2018-09-01] MEDS: GUAIFENESIN/DM 10 ML UDCUP PO PRN (00:22)
[2018-09-01 05:42] LABS: PLATELET COUNT 176 10^3/uL (150-400)
[2018-09-01 05:46] LABS: INR 4.23 (0.83-1.16); PROTIME(PATIENT) 40.3 SEC (12.0-15.0)
[2018-09-01] MEDS: ALBUTEROL 3 ML DEYVIAL IH SCH ×4 (06:04→20:55)
--- NOTE | 2018-09-01 09:06 | HOSPPROG ---
Hospitalist Progress Note Assessment/Plan: 72-year-old with a history significant for pulmonary hypertension, rheumatoid arthritis and a history of pulmonary embolic disease is admitted with bilateral pneumonia. She has been sick for the last several days and was started on Zithromax as an outpatient by her primary care physician. On admission she was noted to be somnolent with severe hypoxia and blood gas showed mild acidosis with elevated pCO2 she was transferred to the step-down unit. She has improved and transferred back to the floor. Overall she feels better, but very tight on exam and a little somnolent still. # bilateral pneumonia with acute hypoxic and hypercapnic respiratory failure likely from RSV. PCP silver stain still pending. * Appreciate pulmonology consult * procalc negative, so antibiotics stopped * continue nebs * prednisone dc/ due to clinical improvement and risk of immune depression from MTX. Watch statue as pt is tight. # rheumatoid arthritis on methotrexate, will hold this temporarily due to her acute illness # chronic renal failure, stage 3, with baseline creat 1.1-1.3. At baseline # pulmonary hypertension, followed at the [facility]. Continue sildenafil. * Echocardiogram reviewed * resume diuretic # history of pulmonary embolus, warfarin on hold due to increased INR. will ask pharm to follow disposition: pt can dc home when able to ambulate with minimal oxygen requirements likely dc in a day or two. Due to severity of patient's illness she will need greater than 2 midnight stay for evaluation and treatment of her pneumonia and respiratory failure Subjective: somnolent still, states feeling better today from a respiratory standpoint Objective: Vital Signs Temp Pulse Resp BP Pulse Ox 36.2 C 76 20 161/95 H 92 09/01/18 07:49 09/01/18 07:49 09/01/18 07:49 09/01/18 07:49 09/01/18 07:49 Laboratory Results 09/01/18 04:28 09/01/18 04:28 08/31/18 09/01/18 09/02/18 05:59 05:59 05:59 Intake Total 818 650 Balance 818 650 PT 40.3 SEC (12.0-15.0) H 09/01/18 04:28 INR 4.23 (0.83-1.16) H 09/01/18 04:28 - Physical Exam Constitutional: not in pain, chronically ill appearing Eyes: PERRL Cardiovascular: regular rate and rhythym Respiratory: reduced air movement, expiratory wheeze, respiratory distress Gastrointestinal: soft, non-tender abdomen Genitourinary: no bladder fullness Skin: normal color Neurologic: No facial droop Psychiatric: other (sleeping) ICD10 Worksheet Patient Problems: Problems Problem Status Onset Small bowel obstruction Acute Pneumonia Acute
[2018-09-01] MEDS: OPSUMIT 10 MG PO SCH (10:04)
[2018-09-01] MEDS: SILDENAFIL CITRATE 20 MG TAB PO SCH ×2 (10:47→21:03)
[2018-09-01] MEDS: BENZONATATE 100 MG CAP PO PRN (13:01)
[2018-09-02] MEDS: ACETAMINOPHEN 325 MG TAB PO PRN (03:24)
[2018-09-02 05:32] LABS: INR 3.44 (0.83-1.16); PROTIME(PATIENT) 34.4 SEC (12.0-15.0)
[2018-09-02] MEDS: ALBUTEROL 3 ML DEYVIAL IH SCH ×2 (06:12→10:28)
[2018-09-02 07:33] VITALS: BP 149/84
[2018-09-02] MEDS ORDERED: FUROSEMIDE 40 MG TAB PO SCH (09:00)
[2018-09-02] MEDS: SILDENAFIL CITRATE 20 MG TAB PO SCH (09:06)
[2018-09-02] MEDS: OPSUMIT 10 MG PO SCH (09:08)
--- NOTE | 2018-09-02 09:08 | HOSPPROG ---
Hospitalist Progress Note Objective: Vital Signs Temp Pulse Resp BP Pulse Ox 36.4 C 70 18 149/84 H 91 L 09/02/18 07:30 09/02/18 07:30 09/02/18 07:30 09/02/18 07:30 09/02/18 07:30 Laboratory Results 09/01/18 04:28 09/02/18 04:35 09/01/18 09/02/18 09/03/18 05:59 05:59 05:59 Intake Total 650 750 Balance 650 750 PT 34.4 SEC (12.0-15.0) H 09/02/18 04:35 INR 3.44 (0.83-1.16) H 09/02/18 04:35 - Physical Exam Cardiovascular: systolic murmur Respiratory: expiratory wheeze ICD10 Worksheet Patient Problems: Problems Problem Status Onset Small bowel obstruction Acute Pneumonia Acute
--- NOTE | 2018-09-02 14:27 | PDIAF ---
- Diagnosis Diagnosis: RSV URI Code Status: Full Code - Medication Management Discharge Medications: electronically signed and located in the Home Medication List. - Orders Services needed: Home Care, Registered Nurse Home Care Face to Face: I certify that this patient was under my care and that I had the required [id number] encounter meeting the encounter requirements on the discharge day. My findings support the fact that the patient is homebound as defined in Home Care Face to Face Continued: CMS Chapter 7 Medicare Benefits Manual 30.1.1 , The condition of the patient is such that there exists a normal inability to leave home and consequently, leaving home would require a considerable and taxing effort. Isolation Type: Contact Isolation, Droplet Isolation Diet Recommendation: no restrictions on diet Diet Texture: Regular Texture Diet - Labs/Radiology PT/INR Date: 09/03/18 - Follow Up Care Current Providers and Referrals: Shefali Burns [Primary Care Provider] - As per Instructions
--- NOTE | 2018-09-02 14:48 | ASMTCMCOM ---
CM Note CM Note Notes: Pts case discussed w/ Dr. Duvall and ELISABETH Arechiga. Pt is a 72 y/o female admitted for pneumonia. Therapies have cleared pt to d/c without any needs. Pt will need her INR checked. CM met w/ pt and family for dispo planning. Pt is agreeable to HC services. [facility] to [facility]. [facility] is able to accept. Pts cell is [phone] and that is her preferred contact number. DC orders sent. CM available for changes. Plan: Adria BARBER Date Signed: 09/02/2018 02:47 PM Electronically Signed By:SARA Schmitt
--- NOTE | 2018-09-02 14:49 | ASDISCHSUM ---
Discharge Information Plan Status:Home with Home Health Medically Cleared to Leave: Discharge Date: D/C Disposition: ADT D/C Disposition:Home, Routine, Self-Care Projected Discharge Date:09/03/2018 11:00 AM Transportation at D/C: Discharge Delay Reason: Follow-Up Date:09/03/2018 11:00 AM Discharge Slot: Final Diagnosis: Placement Information Referral Type:*Home Health Care Services Referral ID:[id number] Provider Name:[facility] (formerly [facility]) Address 1:[address] Address 2: City:[place] Selection Factors: State:[place] Patient Contact Information Contact Name:MADINA Relationship: Address:[address] City:[place] Alternate Phone: State/Zip Code:[place] [address] Email: Financial Information Financial Class:Medicare Primary Plan Desc:MEDICARE INPATIENT Primary Plan Number:[id number] Secondary Plan Desc:[employer] [facility] Secondary Plan Number:[id number] Assessment Information LACE LACE Length of stay for Answers: 3 days current admission Acuity / Level of Answers: Yes Care: Did the patient have an inpatient admission? Comorbidities - select Answers: Other Notes: HTN; PE all that apply # of Emergency department Answers: 1-2 visits in the last 6 months Score: 8 Date Signed: 09/02/2018 02:48 PM Electronically Signed By:SARA Schmitt [facility] CM Progress Note CM Note CM Note Notes: Pts case discussed w/ Dr. Duvall and ELISABETH Arechiga. Pt is a 72 y/o female admitted for pneumonia. Therapies have cleared pt to d/c without any needs. Pt will need her INR checked. CM met w/ pt and family for dispo planning. Pt is agreeable to HC services. [facility]erral [facility] to [facility]. [facility]. Pts cell is [phone] and that is her preferred contact number. DC orders sent. CM available for changes. Plan: Adria BARBER Date Signed: 09/02/2018 02:47 PM Electronically Signed By:SARA Schmitt Intervention Information Intervention Type:*Incorrect Registration Date of Service:08/30/2018 01:40 PM Patient Type:Observation Staff Member:Supriya Chacon Hours: Discipline: Severity: Comment:
--- NOTE | 2018-09-02 15:14 | GDS ---
DISCHARGE DIAGNOSES: 1. Acute on chronic hypoxemic hypercarbic respiratory failure. 2. History of pulmonary hypertension. 3. Rheumatoid arthritis. 4. Pulmonary embolic disease. 5. Respiratory syncytial virus upper respiratory infection. 6. Chronic anticoagulation. HISTORY OF PRESENT ILLNESS: A pleasant 72-year-old female with pulmonary hypertension followed at [facility], chronic pulmonic emboli, RA, presenting with shortness of breath. She saw her PCP, was started on azithromycin for presumed bronchitis, but her symptoms persisted with subjective fevers, myalgias, and shortness of breath. At [facility], she was noted to have fever, hypoxia, and bilateral infiltrates. HOSPITAL COURSE: 1. RSV pneumonitis: Initially was started on antibiotics for presumed PNA, but PCR +RSV. Supportive care here with DuoNeb, cough suppressant. Rx for nebulizer. 2. Acute on chronic hypoxemic respiratory failure: Normally on 3 to 4 L. She is in her baseline. 3. Pulmonary hypertension: follow-up Dr. Teran at [facility]. 4. Rheumatoid arthritis: resume methotrexate tomorrow. 5. History of pulmonary embolism: INR >3. Hold Coumadin today. Discharge on 2mg. Home health nurse arranged to check INRs. DISPOSITION: Patient is stable for discharge home with her daughter and . FOLLOWUP: 1. INR. 2. Primary care physician. PHYSICAL EXAMINATION: VITAL SIGNS: Today, temperature 36.4, blood pressure 149 /84, heart rate in the 70s, respirations 18, 91% on 3.5 L. GENERAL: She is obese, but in no acute distress. HEENT: PERRLA. Moist mucous membranes. CV: Regular rate and rhythm. LUNGS: Diminished at the bases. No wheezes. ABDOMEN: Soft, nontender, nondistended. Positive bowel sounds. : No Castro MUSCULOSKELETAL: 5/5 upper lower extremity strength. NEURO: 2 through 12 intact. PSYCH: Alert and oriented x3. Time spent on discharge greater than 30 minutes at bedside with patient and family answering questions and developing followup plan. /[id number]/MODL MTDD
== END 2018-09-02 15:20 | disposition home or self-care (01) | DRG 193 ==
LOC: CED 17:14 → INTOOBSV 18:46 → CEDHOLD 18:46 → F3E 21:35 → F2N 08-30 09:00 → OBSVTOIN 08-30 15:25 → F2N 08-30 15:55 → F3E 08-31 16:56
PROVIDERS: ADMIT Internal Medicine; ATTEND Internal Medicine
DX: J12.1 Respiratory syncytial virus pneumonia (principal); J96.22 Acute and chronic respiratory failure with hypercapnia; J96.21 Acute and chronic respiratory failure with hypoxia; I27.20 Pulmonary hypertension, unspecified; E87.70 Fluid overload, unspecified; M06.9 Rheumatoid arthritis, unspecified; N18.3 Chronic kidney disease, stage 3 (moderate); J45.909 Unspecified asthma, uncomplicated; Z86.711 Personal history of pulmonary embolism; Z79.01 Long term (current) use of anticoagulants
CPT/HCPCS: 71046-PO; 80048-PO; 83605-PO; 84484-PO; 96365; 97161-GP; 97165-GO; 97535-GO; G0378; G8978-GP-CJ; G8979-GP-CI; G8987-GO-CI; G8988-GO-CI; G8989-GO-CI; J0295; J0456; J2930; J7613

== ENCOUNTER → 2018-10-05 | Outpatient (CLI) | payer OTHER, BC | LOC: FIMAGING 08:30 | PROVIDERS: ATTEND Surgery | DX: K21.9 Gastro-esophageal reflux disease without esophagitis (principal); K22.8 Other specified diseases of esophagus ==

== ENCOUNTER → 2019-02-23 | Outpatient (CLI) | payer OTHER, BC | LOC: EMCIMAGING 16:39 ==